=== PATIENT | female | born 1980 | race Two or more races ===

== ENCOUNTER 2024-12-27 21:37 | Inpatient (IN) | payer MEDICAID ==
[~2024-12-27] VITALS: Ht 162.6 cm; Wt 97.9 kg
[2024-12-27 22:19] LABS: Urine Bacteria None Seen /hpf (None Seen)
--- NOTE | 2024-12-27 22:29 | ED.PDOC ---
GI ASSESSMENT HPI Comments 44y F who presents to the ED for chief complaint of abdominal pain. Pt states she has been having epigastric and RUQ abdominal pain for the past 3 days. Pt states the pain is stabbing in nature, constant, with no associated exacerbating or relieving factors. Pt has associated nausea, vomiting but otherwise denies diarrhea, fever, cough, chills, dysuria, hematuria, or hematemesis. Pt states she took ibuprofen earlier this AM but states it did not help. Pt has noted history of gallstones. Pt otherwise denies any other symptoms at this time. Vital signs were stable at arrival. Chief Complaint: Abdominal Pain Time Seen by MD: 22:28 Reviewed Notes: Nurses Notes, Medications, Allergies Allergies: Coded Allergies: NO KNOWN ALLERGIES (Unverified , 12/27/24) Information Source: Patient Mode of Arrival: Ambulatory Brought in by: self Timing: Days Duration: Since onset Prehospital treatment: None Quality: Aching, Cramping Vomitus: Bilious, Food Particles, Soft, Watery Severity: Moderate Recent: None Recent Hx of: None Pain Location: Diffuse, Epigastric Modifying Factors: Food Associated sign and symptoms: Nausea, Vomiting, Abdominal Pain Past Medical History Surgical History: Denies all surgeries 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 SPRAYER 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 History Family History Family History: Reviewed,noncontributory to illness, No family hx of Cancer, No family hx of DM, No family hx of Heart chica, No family hx of HTN, No family hx ofKidney chica, No family hx of Liver chica, No family hx of Lung chica, No family hx of Stroke Social History Smoker: Non-Smoker Alcohol: Denies ETOH Use Drugs: Denies Drug Use Lives In: Home Constitutional: denies: chills, diaphoresis, fatigue, fever, malaise, sweats, weakness, others EENTM: denies: blurred vision, double vision, ear bleeding, ear discharge, ear drainage, ear pain, ear ringing, eye pain, eye redness, hearing loss, mouth pain, mouth swelling, nasal discharge, nose bleeding, nose congestion, nose pain, photophobia, tearing, throat pain, throat swelling, voice changes, others Respiratory: denies: cough, hemoptysis, orthopnea, SOB at rest, shortness of breath, SOB with excertion, stridor, wheezing, others Cardiovascular: denies: chest pain, dizzy spells, diaphoresis, Dyspnea on exertion, edema, irregular heart beat, left arm pain, lightheadedness, palpitations, PND, syncope, others Gastrointestinal: reports: abdominal pain, nausea, vomiting; denies: abdomen distended, blood streaked bowels, constipated, diarrhea, dysphagia, difficulty swallowing, hematemesis, melena, poor appetite, poor fluid intake, rectal bleeding, rectal pain, others Genitourinary: denies: abnormal vagina bleeding, burning, dyspareunia, dysuria, flank pain, frequency, hematuria, incontinence, pain, , vagina discharge, urgency, others Neurological: denies: dizziness, fainting, headache, left sided numbness, left sided weakness, numbness, paresthesia, pre-existing deficit, right sided numbness, right sided weakness, seizure, speech problems, tingling, tremors, w eakness, others Musculoskeletal: denies: back pain, gout, joint pain, joint swelling, muscle pain, muscle stiffness, neck pain, others Integumetry: denies: bruises, change in color, change in hair/nails, dryness, laceration, lesions, lumps, rash, wounds, others Allergic/Immunocompromised: denies: Difficulty Healing, Frequent Infections, Hives, Itching, others Hematologic/Lymphatic: denies: anemia, blood clots, easy bleeding, easy bruising, swollen glands, others Endocrine: denies: excessive hunger, excessive sweating, excessive thirst, excessive urination, flushing, intolerance to cold, intolerance to heat, unexplained weight gain, unexplained weight loss, others Psychiatric: denies: anxiety, bipolar disorder, depression, hopeless, panic disorder, schizophrenia, sleepless, suicidal, others All Other Systems: Reviewed and Negative Physical Exam General Appearance: Moderate Distress (Patient appears to be in moderate distress at time of evaluation due to belly pain.), Obese HEENT: Pharynx Normal, Scleral Icterus (L), Scleral Icterus (R), TMs Normal Neck: Full Range of Motion, Non-Tender, Normal, Normal Inspection Respiratory: Chest Non-Tender, Lungs Clear, No Accessory Muscle Use, No Respiratory Distress, Normal Breath Sounds Cardiovascular: No Edema, No JVD, No Murmur, No Gallop, Normal Peripheral Pulses, Regular Rate/Rhythm Breast Exam: Deferred Gastrointestinal: Other ( Diffuse epigastric tenderness to palpation bilaterally. Abdomen was mildly rigid. No pulsatile masses. Difficult to assess due to body habitus.) Genitalia: Deferred Pelvic: Deferred Rectal: Deferred Extremities: No calf tenderness, Normal capillary refill, Non-tender, No pedal edema Neurologic: Alert, No Motor Deficits, No Sensory Deficits Cerebellar Function: Normal Reflexes: Normal Skin: Dry, Normal Color, Warm Lymphatic: No Adenopathy Was a procedure done? Was a procedure done?: No GI differential Dx Differential Diagnosis: Cholecystitis, Gastritis/PUD, Gastroenteritis, Hepatitis, Pancreatitis, UTI, Dehydration Other Differential Diagnosis gallstones, biliary colic X-Ray, Labs, Meds, VS Vital Signs Date Time Temp Pulse Resp B/P (MAP) Pulse Ox O2 Delivery O2 Flow Rate FiO2 12/27/24 23:01 98.1 85 19 114/63 (80) 96 98.1 12/27/24 23:01 85 19 96 Room Air 12/27/24 21:59 98.7 88 16 122/74 (90) 97 98.7 Lab Test 12/27/24 22:08 12/27/24 21:54 Range/Units White Blood Count 9.5 4.4-10.8 10^3/uL Red Blood Count 4.62 4.0-5.20 10^6/uL Hemoglobin 13.2 12.2-16.2 g/dL Hematocrit 39.9 36.0-46.0 % Mean Corpuscular Volume 86.4 80.0-100.0 fL Mean Corpuscular Hemoglobin 28.5 28.0-32.0 pg Mean Corpuscular Hemoglobin Concent 33.0 32.0-36.0 g/dL Red Cell Distribution Width 15.9 H 11.8-14.3 % Platelet Count 281 140-450 10^3/uL Mean Platelet Volume 8.5 6.9-10.8 fL Neutrophils (%) (Auto) 82.3 H 37.0-80.0 % Lymphocytes (%) (Auto) 10.9 10.0-50.0 % Monocytes (%) (Auto) 5.9 0.0-12.0 % Eosinophils (%) (Auto) 0.5 0.0-7.0 % Basophils (%) (Auto) 0.4 0.0-2.0 % Neutrophils # (Auto) 7.9 1.6-8.6 10 ^3/uL Lymphocytes # (Auto) 1.0 0.4-5.4 10 ^3/uL Monocytes # (Auto) 0.6 0-1.3 10 ^3/uL Eosinophils # (Auto) 0 0-0.8 10 ^3/uL Basophils # (Auto) 0 0-0.2 10 ^3/uL Nucleated Red Blood Cells 0.0 % Sodium Level 135 L 136-145 mmol/L Potassium Level 3.7 3.5-5.1 mmol/L Chloride Level 105 98-107 mmol/L Carbon Dioxide Level 22 20-31 mmol/L Anion Gap 8 5-15 Blood Urea Nitrogen 6 L 9-23 mg/dL Creatinine 0.71 0.550-1.02 mg/dL Glomerular Filtration Rate Calc 108 >90 mL/min BUN/Creatinine Ratio 8.5 L 10.0-20.0 Serum Glucose 307 H 74-106 mg/dL Calcium Level 9.1 8.7-10.4 mg/dL Total Bilirubin 4.7 H 0.2-1.0 mg/dL Aspartate Amino Transferase (AST) 448 H 13-40 U/L Alanine Aminotransferase (ALT) 481 H 7-40 U/L Alkaline Phosphatase 234 H 46-116 U/L Total Protein 7.1 5.7-8.2 g/dL Albumin 4.4 3.2-4.8 g/dL Lipase > 3500 H 12-53 U/L Urine Color Dark-yellow Yellow Urine Clarity Clear Clear Urine pH 5.5 5.0-9.0 Urine Specific [place] 1.038 H 1.001-1.035 Urine Protein Negative Negative Urine Ketones 1+ H Negative Urine Blood Negative Negative /uL Urine Nitrite Negative Negative Urine Bilirubin 2+ H Negative Urine Urobilinogen Normal Negative mg/dL Urine Leukocyte Esterase Negative Negative /uL Urine RBC 1 0 - 4 /hpf Urine Microscopic WBC 1 0-5 /HPF Urine Squamous Epithelial Cells Few <5 /hpf Urine Bacteria None seen None Seen /hpf Urine Glucose 4+ H Normal mg/dL Urine Test Negative Negative Current Medications Medications (Trade) Dose Ordered Sig/[place]ville Route Start Time Stop Time Status Last Admin Acetaminophen/ Hydrocodone Bitart ([place] 10/325MG Tab) 1 tab ONCE ONCE PO 12/27/24 22:00 12/27/24 22:01 DC 12/27/24 23:02 Ondansetron HCl (Zofran Po) 4 mg ONCE ONCE PO 12/27/24 22:00 12/27/24 22:01 DC 12/27/24 23:02 X-Ray, Labs, Meds, VS Comment All studies performed the ED were evaluated by me personally. Laboratories revealed a significant lipase burden of over 3500, significant transaminitis and hyperglycemia. Imaging studies confirmed a significant pancreatitis as well as hepatomegaly and hepatic steatosis. Patient will be admitted for management of her liver and pancreatic concerns. Time of 1ST Reevaluation: 00:06 Reevaluation 1ST: Improved Consultation: PCP Patient Education/Counseling: Diagnosis, Treatment Family Education/Counseling: Diagnosis, Treatment, No Family Present Departure 1 Departure Time of Disposition: 00:07 Impression: Primary Impression: Acute pancreatitis Additional Impressions: Hepatomegaly Hepatic steatosis Disposition: ADMITTED INPATIENT Condition: Fair Discharged With: Self Critical Care Note Critical Care Time?: No Stability Stability form required: No Heart Score Heart Score: Heart Score Response (Comments) Value History N/A 0 EKG N/A 0 Age N/A 0 Risk Factors N/A 0 Troponin N/A 0 Total 0 I personally scribed for LINA NGUYEN PAC ([email or web address]) on 12/27/24 at 22:29. Electronically submitted by Janay Tadeo ([email or web address]). LINA NGUYEN PAC Dec 27, 2024 22:29
[2024-12-27 22:33] LABS: Basophils # (auto) 0 10 ^3/uL (0-0.2); Basophils % (auto) 0.4 % (0.0-2.0); Eosinophils # (auto) 0 10 ^3/uL (0-0.8); Eosinophils % (auto) 0.5 % (0.0-7.0); Hematocrit 39.9 % (36.0-46.0); Hemoglobin 13.2 g/dL (12.2-16.2); Lymphocytes % (auto) 10.9 % (10.0-50.0); Mean Corpuscular Hemoglobin 28.5 pg (28.0-32.0); Mean Corpuscular Volume 86.4 fL (80.0-100.0); Monocytes # (auto) 0.6 10 ^3/uL (0-1.3); Monocytes % (auto) 5.9 % (0.0-12.0); Neutrophils # (auto) 7.9 10 ^3/uL (1.6-8.6); Neutrophils % (auto) 82.3 % (37.0-80.0); Platelet Count (auto) 281 10^3/uL (140-450); Red Blood Cells 4.62 10^6/uL (4.0-5.20); Red Cell Distribution Width 15.9 % (11.8-14.3); White Blood Cell 9.5 10^3/uL (4.4-10.8)
[2024-12-27 22:34] LABS: Albumin 4.4 g/dL (3.2-4.8); Anion Gap 8 (5-15); BUN/Creatinine Ratio 8.5 (10.0-20.0); Calcium 9.1 mg/dL (8.7-10.4); Carbon Dioxide 22 mmol/L (20-31); Chloride 105 mmol/L (98-107); Potassium 3.7 mmol/L (3.5-5.1); Total Protein 7.1 g/dL (5.7-8.2)
[2024-12-27 22:37] LABS: Urine Blood Negative /uL (Negative); Urine Clarity Clear (Clear); Urine Color Dark-Yellow (Yellow); Urine Protein, UAD Negative (Negative); Urine Specific Gravity 1.038 (1.001-1.035); Urine Squamous Epithelial Cell FEW /hpf (<5); Urine Urobilinogen Normal (Negative); Urine WBC 1 /HPF (0-5); Urine pH 5.5 (5.0-9.0)
[2024-12-27] MEDS: ONDANSETRON ODT 4 MG TAB PO ONE (23:02)
[2024-12-27] MEDS: HYDROcodone-ACET 10/325MG TAB PO ONE (23:02)
[2024-12-27 23:18] LABS: Alanine Aminotransferase 481 U/L (7-40); Alkaline Phosphatase 234 U/L (46-116); Aspartate Aminotransferase 448 U/L (13-40); Bilirubin, Total 4.7 mg/dL (0.2-1.0); Blood Urea Nitrogen 6 mg/dL (9-23); Glucose 307 mg/dL (74-106); Lipase > 3500 U/L (12-53); Sodium 135 mmol/L (136-145)
[2024-12-27] MEDS: IOHEXOL 300 MG/ML 100ML BOTTLE IJ ONE (23:28)
--- NOTE | 2024-12-27 23:57 | DVH ---
Exam: CT CT AB PEL WITH IV CON ONLY History: Epigastric and right upper quadrant pain COMPARISON: None Technique: Multidetector spiral CT of the abdomen and pelvis was performed from lung bases to pubic s ymphysis. Intravenous contrast was administered during this examination. Portal venous imaging was o btained. Axial, coronal and sagittal multiplanar reformats were performed by the technologist on a [employer] workstation. Radiation Dose : 1. Abdomen/Pelvis: CTDIvol 20.83 mGy, DLP 1284.92 mGy*cm. CONTRAST: Type of contrast: Omnipaque 300 Contrast injected: 100 ml Contrast ingested: None Findings: Lung Bases: No acute or significant lung base finding. Mild left basilar atelectasis noted. Normal he art size. No pleural or pericardial effusion. Liver: The liver is enlarged, measuring up to 21.4 cm in craniocaudal dimension. Diffuse hepatic stea tosis. No focal lesions. Normal hepatic vascular enhancement. Spleen: Unremarkable Pancreas: Moderate diffuse peripancreatic inflammatory changes are noted without discrete fluid colle ctions or definite evidence of pancreatic parenchymal necrosis, CT severity index 2. There is increas ed prominence of the common bile duct and the gallbladder is moderately distended. No evidence of int rahepatic biliary ductal dilatation. Adrenal Glands: Unremarkable Kidneys: No hydronephrosis. Bladder: Unremarkable Bowel: The stomach is grossly normal in appearance. Small bowel and colon are normal in caliber and d istribution. The appendix is normal. Ascites: Absent Lymphadenopathy: No mesenteric, retroperitoneal or periportal lymphadenopathy. Abdominal Wall and Mesentery: Unremarkable. Vasculature: The visualized abdominal aorta is normal in size and caliber. Abdominal and pelvic vess els demonstrate normal enhancement. Pelvic Organs: Unremarkable Musculoskeletal: No aggressive focal bony lesions, acute fractures or dislocation. IMPRESSION: 1. Acute pancreatitis, CTSI 2. 2. Hepatomegaly and hepatic steatosis. Radiation optimization: All CT scans at this facility use at least one of these dose optimization jared hniques: automated exposure control mA and/or kV adjustment per patient size (includes targeted exam s where dose is matched to clinical indication) or iterative reconstruction.
[2024-12-28] VITALS (8 sets, daily range): BP systolic 101–115; BP diastolic 52–73; PULSE 74–94; RESP 16–18; TEMP 97.3–99.1; O2SAT 92–98
[2024-12-28] MEDS: HYDROmorphone HCL 2 MG/ML VL/or syr IV ONE (00:12)
[2024-12-28] MEDS: METOCLOPRAMIDE HCL 5MG/ml INJ 2ml VIAL IV ONE (00:13)
[2024-12-28] MEDS ORDERED: ONDANSETRON HCL 4 MG/2 ML VIAL IV PRN (01:00)
[2024-12-28] MEDS: SODIUM CHLORIDE 0.9% 1,000 ML IV ONE (01:46)
--- NOTE | 2024-12-28 03:19 | DVHHP2 ---
History of Present Illness Reason for Visit: Abdominal pain History of Present Illness 44-year-old female presents for evaluation of abdominal pain. Patient presents with a three day history of sharp epigastric abdominal pain that radiates to her right upper quadrant. She reports the pain as sharp/stabbing. Patient associates having nausea and vomiting. Denies fever or diarrhea. No other acute complaints reported. Past Medical History Denies Past Surgical History Denies Family History Noncontributory Smoke: No ALCOHOL: none Drugs: None Lives: with Family Review of Systems Review of Systems Review of systems are currently negative otherwise addressed in HPI. Allergies: Coded Allergies: NO KNOWN ALLERGIES (Unverified , 12/27/24) Medications Current Medications Medications Dose Ordered Sig/[place]ville Route Start Time Stop Time Status Last Admin Dose Admin Pantoprazole Sodium 40 mg DAILY IV 12/28/24 10:00 Ondansetron HCl 4 mg Q4HP PRN IV 12/28/24 01:00 Morphine Sulfate 2 mg Q4HPRN PRN IV 12/28/24 01:00 Exam Vital Signs Vital Signs Date Time Temp Pulse Resp B/P (MAP) Pulse Ox O2 Delivery O2 Flow Rate FiO2 12/28/24 01:15 98.2 80 17 115/52 (73) 94 98.2 12/28/24 01:09 Room Air* 0 21 21 Exam Gen: 44-year-old female in mild distress Skin: Warm, dry, normal color and texture, no rash. HEENT: Normocephalic atraumatic, mucous membranes moist and pink. Neck: Cervical and supraclavicular nodes normal without enlargement, trachea is midline, thyroid gland is normal without masses. Pulmonary: Clear to auscultation and percussion bilaterally. Cardiac: Regular rate and rhythm. No murmur Abdomen: Soft, epigastric tenderness, nondistended, bowel sounds present all 4 quadrants, no guarding, no rigidity, no organomegaly. Extremities: No cyanosis, clubbing, no edema Neuro: Cranial nerves II through XII grossly intact, normal affect and speech, no focal motor deficits. Labs/Xrays ORDERING PHYSICIAN: LINA NGUYEN PAC PROCEDURE(s): ABPLIV - CT AB PEL WITH IV CON ONLY REASON: Epigastric and right upper quadrant pain ORDER NUMBER(s): [id number], ACCESSION NUMBER(s): [id number] Exam: CT CT AB PEL WITH IV CON ONLY History: Epigastric and right upper quadrant pain COMPARISON: None Technique: Multidetector spiral CT of the abdomen and pelvis was performed from lung bases to pubic symphysis. Intravenous contrast was administered during this examination. Portal venous imaging was obtained. Axial, coronal and sagittal multiplanar reformats were performed by the technologist on a separate workstation. Radiation Dose : 1. Abdomen/Pelvis: CTDIvol 20.83 mGy, DLP 1284.92 mGy*cm. CONTRAST: Type of contrast: Omnipaque 300 Contrast injected: 100 ml Contrast ingested: None Findings: Lung Bases: No acute or significant lung base finding. Mild left basilar at electasis noted. Normal heart size. No pleural or pericardial effusion. Liver: The liver is enlarged, measuring up to 21.4 cm in craniocaudal dimension. Diffuse hepatic steatosis. No focal lesions. Normal hepatic vascular enhancement. Spleen: Unremarkable Pancreas: Moderate diffuse peripancreatic inflammatory changes are noted without discrete fluid collections or definite evidence of pancreatic parenchymal necrosis, CT severity index 2. There is increased prominence of the common bile duct and the gallbladder is moderately distended. No evidence of intrahepatic biliary ductal dilatation. Adrenal Glands: Unremarkable Kidneys: No hydronephrosis. Bladder: Unremarkable Bowel: The stomach is grossly normal in appearance. Small bowel and colon are normal in caliber and distribution. The appendix is normal. Ascites: Absent Lymphadenopathy: No mesenteric, retroperitoneal or periportal lymphadenopathy. Abdominal Wall and Mesentery: Unremarkable. Vasculature: The visualized abdominal aorta is normal in size and caliber. Abdominal and pelvic vessels demonstrate normal enhancement. Pelvic Organs: Unremarkable Musculoskeletal: No aggressive focal bony lesions, acute fractures or dislocation. IMPRESSION: 1. Acute pancreatitis, CTSI 2. 2. Hepatomegaly and hepatic steatosis. Radiation optimization: All CT scans at this facility use at least one of these dose optimization techniques: automated exposure control mA and/or kV adjustment per patient size (includes targeted exams where dose is matched to clinical indication) or iterative reconstruction. ATED BY: PORFIRIO PAIZ MD Labs Test 12/27/24 22:08 12/27/24 21:54 Range/Units White Blood Count 9.5 4.4-10.8 10^3/uL Red Blood Count 4.62 4.0-5.20 10^6/uL Hemoglobin 13.2 12.2-16.2 g/dL Hematocrit 39.9 36.0-46.0 % Mean Corpuscular Volume 86.4 80.0-100.0 fL Mean Corpuscular Hemoglobin 28.5 28.0-32.0 pg Mean Corpuscular Hemoglobin Concent 33.0 32.0-36.0 g/dL Red Cell Distribution Width 15.9 H 11.8-14.3 % Platelet Count 281 140-450 10^3/uL Mean Platelet Volume 8.5 6.9-10.8 fL Neutrophils (%) (Auto) 82.3 H 37.0-80.0 % Lymphocytes (%) (Auto) 10.9 10.0-50.0 % Monocytes (%) (Auto) 5.9 0.0-12.0 % Eosinophils (%) (Auto) 0.5 0.0-7.0 % Basophils (%) (Auto) 0.4 0.0-2.0 % Neutrophils # (Auto) 7.9 1.6-8.6 10 ^3/uL Lymphocytes # (Auto) 1.0 0.4-5.4 10 ^3/uL Monocytes # (Auto) 0.6 0-1.3 10 ^3/uL Eosinophils # (Auto) 0 0-0.8 10 ^3/uL Basophils # (Auto) 0 0-0.2 10 ^3/uL Nucleated Red Blood Cells 0.0 % Sodium Level 135 L 136-145 mmol/L Potassium Level 3.7 3.5-5.1 mmol/L Chloride Level 105 98-107 mmol/L Carbon Dioxide Level 22 20-31 mmol/L Anion Gap 8 5-15 Blood Urea Nitrogen 6 L 9-23 mg/dL Creatinine 0.71 0.550-1.02 mg/dL Glomerular Filtration Rate Calc 108 >90 mL/min BUN/Creatinine Ratio 8.5 L 10.0-20.0 Serum Glucose 307 H 74-106 mg/dL Calcium Level 9.1 8.7-10.4 mg/dL Total Bilirubin 4.7 H 0.2-1.0 mg/dL Aspartate Amino Transferase (AST) 448 H 13-40 U/L Alanine Aminotransferase (ALT) 481 H 7-40 U/L Alkaline Phosphatase 234 H 46-116 U/L Total Protein 7.1 5.7-8.2 g/dL Albumin 4.4 3.2-4.8 g/dL Lipase > 3500 H 12-53 U/L Urine Color Dark-yellow Yellow Urine Clarity Clear Clear Urine pH 5.5 5.0-9.0 Urine Specific [place] 1.038 H 1.001-1.035 Urine Protein Negative Negative Urine Ketones 1+ H Negative Urine Blood Negative Negative /uL Urine Nitrite Negative Negative Urine Bilirubin 2+ H Negative Urine Urobilinogen Normal Negative mg/dL Urine Leukocyte Esterase Negative Negative /uL Urine RBC 1 0 - 4 /hpf Urine Microscopic WBC 1 0-5 /HPF Urine Squamous Epithelial Cells Few <5 /hpf Urine Bacteria None seen None Seen /hpf Urine Glucose 4+ H Normal mg/dL Urine Test Negative Negative Assessment/Plan Assessment/Plan Assessment Acute abdominal pain Acute pancreatitis Transaminitis Plan Admit the patient to [facility] to the hospitalist GI consult MRCP pending Maintenance IV fluids Pain management Continue treatment per orders. Plan discussed with: Patient My Orders Orders - TRAM MANDEL Procedure Category Date Status Time Pantoprazole PHA 12/28/24 In Process (Protonix) 10:00 * [facility] [employer] CONS 12/28/24 Transmitted 00:57 Mrcp Mri MRI 12/28/24 Logged 00:57 Sodium Chloride 0.9% PHA 12/28/24 In Process 01:00 Admit ADMIT 12/28/24 Transmitted 00:57 Ondansetron Hcl PHA 12/28/24 In Process (Zofran) 01:00 Complete Blood Count LAB 12/28/24 Logged 04:00 Comprehensive LAB 12/28/24 Logged Metabolic Panel 04:00 Npo (Nothing By DIET 12/28/24 Transmitted Mouth) Diet Breakfast Condition: Stable RAMIRO 12/28/24 In Process 00:57 Bedrest With Bathroom RAMIRO 12/28/24 In Process Privileg 00:57 Morphine Sulfate PHA 12/28/24 In Process Injection 01:00 Acute Hepatitis Panel LAB 12/28/24 Logged 00:57 Date of Service: Dec 27, 2024 Billing Provider: TRAM MANDEL Common Visit Codes: [id number] INP/OBS CARE (HIGH) TRAM MANDEL Dec 28, 2024 03:19
[2024-12-28] MEDS: MORPHINE SULFATE INJ 2 MG/ml SYRG IV PRN (06:09)
[2024-12-28] MEDS: PANTOPRAZOLE 40 MG/10 ML VIAL INJ IV SCH (08:45)
--- NOTE | 2024-12-28 11:01 | DVHPN2 ---
Reviewed: Care Plan, H&P, Labs, Medications, Previous Orders, Radiology Changes from previous H/P or p: No Changes Objective Vitals Vital Signs Date Time Temp Pulse Resp B/P (MAP) Pulse Ox O2 Delivery O2 Flow Rate FiO2 12/28/24 08:16 98.1 76 18 102/59 (73) 96 98.1 12/28/24 07:30 Room Air* 0 21 Intake/Output Intake and Output 12/28/24 07:00 Intake Total 0 ml Balance 0 ml Intake Oral 0 ml Other 0 ml Medications Current Medications Medications Dose Ordered Sig/[place] Route Start Time Stop Time Status Last Admin Dose Admin Pantoprazole Sodium 40 mg DAILY IV 12/28/24 10:00 12/28/24 08:45 40 MG Ondansetron HCl 4 mg Q4HP PRN IV 12/28/24 01:00 Morphine Sulfate 2 mg Q4HPRN PRN IV 12/28/24 01:00 12/28/24 06:09 2 MG Laboratory Results Laboratory Tests 12/27/24 22:08 Chemistry Test 12/27/24 22:08 Albumin 4.4 g/dL (3.2-4.8) Calcium Level 9.1 mg/dL (8.7-10.4) Total Protein 7.1 g/dL (5.7-8.2) Lipid panel Test 12/27/24 22:08 Lipase > 3500 U/L (12-53) H LFT Test 12/27/24 22:08 Alanine Aminotransferase (ALT) 481 U/L (7-40) H Alkaline Phosphatase 234 U/L (46-116) H Aspartate Amino Transferase (AST) 448 U/L (13-40) H Total Bilirubin 4.7 mg/dL (0.2-1.0) H Urinalysis Test 12/27/24 21:54 Urine Color Dark-yellow (Yellow) Urine Clarity Clear (Clear) Urine pH 5.5 (5.0-9.0) Urine Specific [place] 1.038 (1.001-1.035) Urine Protein Negative (Negative) Urine Ketones 1+ (Negative) H Urine Blood Negative /uL (Negative) Urine Nitrite Negative (Negative) Urine Bilirubin 2+ (Negative) H Urine Urobilinogen Normal mg/dL (Negative) Urine Leukocyte Esterase Negative /uL (Negative) Urine RBC 1 /hpf (0 - 4) Urine Microscopic WBC 1 /HPF (0-5) Urine Squamous Epithelial Cells Few /hpf (<5) Urine Bacteria None seen /hpf (None Seen) Urine Glucose 4+ mg/dL (Normal) H Urine Test Negative (Negative) Labs and/or images reviewed: Labs reviewed by me, Image(s) reviewed by me Assessment/Plan Assessment/Plan Pain Acute pancreatitis with a lipase of 3500, IV fluids pain medications pantoprazole consult for GI Dr. Violette Ruiz Elevated liver enzymes with jaundice: Gallbladder ultrasound MRCP comprehensive hepatitis panel, urine drug screen, blood alcohol level Hyperbilirubinemia bilirubin 4.5 History of gallstones MRCP result pending Condition guarded Plan discussed with: Patient My Orders Orders - CHERY AVENDANO MD Procedure Category Date Status Time Drug Screen LAB 12/28/24 Transmitted 10:49 Comprehensive LAB 12/28/24 Transmitted Hepatitis Panel 10:49 * [facility] Associate [employer] CONS 12/28/24 Transmitted 10:49 Gallbladder US 12/28/24 Verified 10:51 Date of Service: Dec 28, 2024 Billing Provider: CHERY AVENDANO MD Common Visit Codes: [id number] INP/OBS CARE(HIGH) CHERY AVENDANO MD Dec 28, 2024 11:01
[2024-12-28] MEDS: D5W/SOD CHLO 0.9% 1,000 ML IV SCH (11:23)
[2024-12-28 11:57] LABS: Basophils # (auto) 0 10 ^3/uL (0-0.2); Basophils % (auto) 0.2 % (0.0-2.0); Eosinophils # (auto) 0.1 10 ^3/uL (0-0.8); Eosinophils % (auto) 0.9 % (0.0-7.0); Hematocrit 36.5 % (36.0-46.0); Hemoglobin 12.3 g/dL (12.2-16.2); Lymphocytes # (auto) 1.2 10 ^3/uL (0.4-5.4); Lymphocytes % (auto) 14.5 % (10.0-50.0); Mean Corpuscular Hemoglobin 28.9 pg (28.0-32.0); Mean Corpuscular Hgb Conc. 33.8 g/dL (32.0-36.0); Mean Corpuscular Volume 85.6 fL (80.0-100.0); Monocytes # (auto) 0.6 10 ^3/uL (0-1.3); Monocytes % (auto) 7.4 % (0.0-12.0); Neutrophils # (auto) 6.6 10 ^3/uL (1.6-8.6); Platelet Count (auto) 241 10^3/uL (140-450); Red Blood Cells 4.26 10^6/uL (4.0-5.20); Red Cell Distribution Width 15.8 % (11.8-14.3); White Blood Cell 8.6 10^3/uL (4.4-10.8)
[2024-12-28 12:14] LABS: Albumin 4.2 g/dL (3.2-4.8); Anion Gap 9 (5-15); BUN/Creatinine Ratio 9.7 (10.0-20.0); Calcium 9.1 mg/dL (8.7-10.4); Carbon Dioxide 25 mmol/L (20-31); Chloride 104 mmol/L (98-107); Sodium 138 mmol/L (136-145); Total Protein 6.8 g/dL (5.7-8.2)
[2024-12-28 12:15] LABS: Alanine Aminotransferase 391 U/L (7-40); Alkaline Phosphatase 222 U/L (46-116); Aspartate Aminotransferase 229 U/L (13-40); Blood Urea Nitrogen 6 mg/dL (9-23); Glucose 182 mg/dL (74-106); Potassium 3.4 mmol/L (3.5-5.1)
--- NOTE | 2024-12-28 12:51 | DVH ---
[id number] MRI MRCP MRI Attending Name: LINA NGUYEN COMPARISON: CT scan of the abdomen dated 12/27/2024; ultrasound of the right upper quadrant dated . INDICATION: r/o biliary obstruction TECHNIQUE: MRCP was performed without the use of intravenous contrast using a MRI imaging system. Three-dimensional MRCP was performed using maximum intensity projection reconstruction on an [facility] [employer] workstation under concurrent supervision. FINDINGS: Hepatobiliary: Multiple gallstones are visualized in the gallbladder lumen. No intra or extrahepatic biliary dilatation. There may be tiny calculi in the common bile duct (images 20 2-24, series 4, alt julio c there is extensive patient motion limiting evaluation at those levels. No abnormal prominence o f the main pancreatic duct. The liver measures 21 cm longitudinal. There is peripancreatic fluid. Miscellaneous: The kidneys, spleen, and adrenal glands are unremarkable. No abdominal aortic aneurys m. IMPRESSION: 1. Cholelithiasis and possible choledocholithiasis, without intra or extrahepatic biliary dilatation. 2. Peripancreatic fluid consistent with acute pancreatitis. 3. Hepatomegaly.
[2024-12-28 13:01] LABS: Amphetamine Screen, Urine Neg (NEGATIVE); Barbiturate Scree,Urine Neg (NEGATIVE); Benzodiazephine Screen, Urine Neg (NEGATIVE); Cannabinoid Screen, Urine Neg (NEGATIVE); Cocaine Screen, Urine Neg (NEGATIVE); Opiate Scree,Urine Neg (NEGATIVE); Phencyclidine Screen, Urine Neg (NEGATIVE)
--- NOTE | 2024-12-28 13:37 | DVH ---
INDICATION: Acute pancreatitis TECHNIQUE: Multiple real-time sonographic images of the abdomen were obtained. COMPARISON: None FINDINGS: The liver is homogenous in echogenicity. The liver measures 20.2 cm. No intrahepatic bilia ry ductal dilatation is noted. The gallbladder wall measures 0.23 cm and is unremarkable. Mobile gallstones in the gallbladder. T he common duct measures 0.46 cm and is unremarkable. No pericholecystic fluid is noted. Negative ult rasound Chen's sign The right kidney measures 11.5 cm. No hydronephrosis. The pancreas is normal however the tail of the pancreas is obscured. IMPRESSION: 1. Cholelithiasis with no dilated duct or gallbladder wall thickening. Negative ultrasound Chen's s ign is elicited. 2. Hepatomegaly with the liver measuring 20.2 cm. 3. Right kidney measures 11.5 cm long. 4. Pancreas appears normal but the tail is obscured by bowel gas. HS:Y
--- NOTE | 2024-12-28 21:48 | DVHINCON2 ---
Date of service: Dec 28, 2024 Referring Physician Parvez Contreras Reason for Consultation Suspected gallstone pancreatitis History of Present Illness 44-year-old female presents for evaluation of abdominal pain. Patient presents with a three day history of sharp epigastric abdominal pain that radiates to her right upper quadrant. She reports the pain as sharp/stabbing. Patient associates having nausea and vomiting. Denies fever or diarrhea. No other acute complaints reported. Patient was diagnosed with the acute pancreatitis. She denies any drinking alcohol. Ultrasound shows gallstones without any significant biliary ductal dilation Past Medical History Pancreatitis about seven years ago Family History: Patient reports no known family medical history. Allergies: Coded Allergies: NO KNOWN ALLERGIES (Unverified , 12/27/24) Current Medications Current Medications Medications (Trade) Dose Ordered Sig/[place]ville Route PRN Reason Start Time Stop Time Status Last Admin Pantoprazole Sodium (Protonix) 40 mg DAILY IV 12/28/24 10:00 12/28/24 08:45 Ondansetron HCl (Zofran) 4 mg Q4HP PRN IV NAUSEA / VOMITING 12/28/24 01:00 Morphine Sulfate 2 mg Q4HPRN PRN IV SEVERE PAIN (7-10 PAIN SCALE) 12/28/24 01:00 12/28/24 20:17 Dextrose/Sodium Chloride 1,000 ml @ 150 mls/hr Q6H40M IV 12/28/24 11:00 12/28/24 18:53 Vital Signs Vital Signs Date Time Temp Pulse Resp B/P (MAP) Pulse Ox O2 Delivery O2 Flow Rate FiO2 12/28/24 20:17 95 18 109/63 12/28/24 20:00 Room Air* 0 21 12/28/24 15:30 98.3 92 98.3 Physical Exam Gen: 44-year-old female in no distress Skin: Warm, dry, normal color and texture, no rash. HEENT: Normocephalic atraumatic, mucous membranes moist and pink. Neck: Cervical and supraclavicular nodes normal without enlargement, trachea is midline, thyroid gland is normal without masses. Pulmonary: Clear to auscultation and percussion bilaterally. Cardiac: Regular rate and rhythm. No murmur Abdomen: Soft, epigastric tenderness, nondistended, bowel sounds present all 4 quadrants, no guarding, no rigidity, no organomegaly. Extremities: No cyanosis, clubbing, no edema; Neuro nonfocal Labs/Diagnostic Data Labs Test 12/28/24 11:13 12/27/24 22:08 12/27/24 21:54 Range/Units White Blood Count 8.6 4.4-10.8 10^3/uL Red Blood Count 4.26 4.0-5.20 10^6/uL Hemoglobin 12.3 12.2-16.2 g/dL Hematocrit 36.5 36.0-46.0 % Mean Corpuscular Volume 85.6 80.0-100.0 fL Mean Corpuscular Hemoglobin 28.9 28.0-32.0 pg Mean Corpuscular Hemoglobin Concent 33.8 32.0-36.0 g/dL Red Cell Distribution Width 15.8 H 11.8-14.3 % Platelet Count 241 140-450 10^3/uL Mean Platelet Volume 8.4 6.9-10.8 fL Neutrophils (%) (Auto) 77.0 37.0-80.0 % Lymphocytes (%) (Auto) 14.5 10.0-50.0 % Monocytes (%) (Auto) 7.4 0.0-12.0 % Eosinophils (%) (Auto) 0.9 0.0-7.0 % Basophils (%) (Auto) 0.2 0.0-2.0 % Neutrophils # (Auto) 6.6 1.6-8.6 10 ^3/uL Lymphocytes # (Auto) 1.2 0.4-5.4 10 ^3/uL Monocytes # (Auto) 0.6 0-1.3 10 ^3/uL Eosinophils # (Auto) 0.1 0-0.8 10 ^3/uL Basophils # (Auto) 0 0-0.2 10 ^3/uL Nucleated Red Blood Cells 0.0 % Sodium Level 138 136-145 mmol/L Potassium Level 3.4 L 3.5-5.1 mmol/L Chloride Level 104 98-107 mmol/L Carbon Dioxide Level 25 20-31 mmol/L Anion Gap 9 5-15 Blood Urea Nitrogen 6 L 9-23 mg/dL Creatinine 0.62 0.550-1.02 mg/dL Glomerular Filtration Rate Calc 113 >90 mL/min BUN/Creatinine Ratio 9.7 L 10.0-20.0 Serum Glucose 182 H 74-106 mg/dL Calcium Level 9.1 8.7-10.4 mg/dL Total Bilirubin 2.0 H 0.2-1.0 mg/dL Aspartate Amino Transferase (AST) 229 H 13-40 U/L Alanine Aminotransferase (ALT) 391 H 7-40 U/L Alkaline Phosphatase 222 H 46-116 U/L Total Protein 6.8 5.7-8.2 g/dL Albumin 4.2 3.2-4.8 g/dL Lipase > 3500 H 12-53 U/L Urine Color Dark-yellow Yellow Urine Clarity Clear Clear Urine pH 5.5 5.0-9.0 Urine Specific [place] 1.038 H 1.001-1.035 Urine Protein Negative Negative Urine Ketones 1+ H Negative Urine Blood Negative Negative /uL Urine Nitrite Negative Negative Urine Bilirubin 2+ H Negative Urine Urobilinogen Normal Negative mg/dL Urine Leukocyte Esterase Negative Negative /uL Urine RBC 1 0 - 4 /hpf Urine Microscopic WBC 1 0-5 /HPF Urine Squamous Epithelial Cells Few <5 /hpf Urine Bacteria None seen None Seen /hpf Urine Glucose 4+ H Normal mg/dL Urine Test Negative Negative Urine Opiates Screen Neg NEGATIVE Urine Fentanyl Screen Pos NEGATIVE Urine Barbiturates Screen Neg NEGATIVE Urine Phencyclidine Screen Neg NEGATIVE Urine Amphetamines Screen Neg NEGATIVE Urine Benzodiazepines Screen Neg NEGATIVE Urine Cocaine Screen Neg NEGATIVE Urine Cannabinoids Screen Neg NEGATIVE CT SCAN ABD PELVIS Pancreas: Moderate diffuse peripancreatic inflammatory changes are noted without discrete fluid collections or definite evidence of pancreatic parenchymal necrosis, CT severity index 2. There is increased prominence of the common bile duct and the gallbladder is moderately distended. No evidence of intrahepatic biliary ductal dilatation. Hepatic steatosis RUQ USG IMPRESSION: 1. Cholelithiasis with no dilated duct or gallbladder wall thickening. Negative ultrasound Chen's sign is elicited. 2. Hepatomegaly with the liver measuring 20.2 cm. 3. Right kidney measures 11.5 cm long. 4. Pancreas appears normal but the tail is obscured by bowel gas. Problems(with codes): (1) Elevated liver enzymes (2) Gallstone pancreatitis (3) Hepatic steatosis (4) Acute pancreatitis (5) Hepatomegaly Plan/Recommendation Plan Continue NPO except for ice chips IV fluid hydration Monitor labs MRCP Surgical consult for elective cholecystectomy once acute pancreatitis resolves Plan discussed with: Patient, Other (Nurse) HEATHER DOS SANTOS MD Dec 28, 2024 21:48
[2024-12-29] VITALS (7 sets, daily range): BP systolic 104–113; BP diastolic 50–73; PULSE 77–89; RESP 17–20; TEMP 98.1–98.7; O2SAT 94–97
[2024-12-29 06:52] LABS: Basophils # (auto) 0 10 ^3/uL (0-0.2); Basophils % (auto) 0.3 % (0.0-2.0); Eosinophils # (auto) 0.1 10 ^3/uL (0-0.8); Hematocrit 33.5 % (36.0-46.0); Hemoglobin 11.3 g/dL (12.2-16.2); Lymphocytes # (auto) 1.8 10 ^3/uL (0.4-5.4); Lymphocytes % (auto) 25.1 % (10.0-50.0); Mean Corpuscular Hemoglobin 28.8 pg (28.0-32.0); Mean Corpuscular Hgb Conc. 33.7 g/dL (32.0-36.0); Mean Corpuscular Volume 85.6 fL (80.0-100.0); Monocytes # (auto) 0.6 10 ^3/uL (0-1.3); Monocytes % (auto) 8.5 % (0.0-12.0); Neutrophils # (auto) 4.5 10 ^3/uL (1.6-8.6); Neutrophils % (auto) 64.1 % (37.0-80.0); Platelet Count (auto) 218 10^3/uL (140-450); Red Blood Cells 3.92 10^6/uL (4.0-5.20); Red Cell Distribution Width 15.6 % (11.8-14.3)
[2024-12-29 07:05] LABS: Anion Gap 8 (5-15); Carbon Dioxide 23 mmol/L (20-31); Chloride 107 mmol/L (98-107); Sodium 138 mmol/L (136-145)
[2024-12-29 07:06] LABS: Alanine Aminotransferase 247 U/L (7-40); Alkaline Phosphatase 173 U/L (46-116); BUN/Creatinine Ratio 8.6 (10.0-20.0); Blood Urea Nitrogen < 5 mg/dL (9-23); Calcium 8.6 mg/dL (8.7-10.4); Glucose 225 mg/dL (74-106); Lipase 401 U/L (12-53); Potassium 3.3 mmol/L (3.5-5.1)
[2024-12-29 07:07] LABS: Albumin 3.7 g/dL (3.2-4.8); Aspartate Aminotransferase 90 U/L (13-40)
[2024-12-29 10:02] LABS: Hepatitis B Surface Antigen Negative (Negative)
[2024-12-29 10:17] LABS: Hepatitis B Core Total AB Negative (Negative)
[2024-12-29 10:22] LABS: Hepatitis A Ab IgM Negative
[2024-12-29 10:23] LABS: Hepatitis B Core IgM Negative (Negative); Hepatitis C Antibody Negative (Negative)
--- NOTE | 2024-12-29 10:54 | DVH ---
[id number] MRI MRCP MRI Attending Name: TRAM MANDEL COMPARISON: MRI MRCP MRI on DOS: 12/28/24, ultrasound dated 12/28/2024 INDICATION: gallstone pancreatitis elevated liver tests TECHNIQUE: MRCP was performed without the use of intravenous contrast using a MRI imaging system. Three-dimensional MRCP was performed using maximum intensity projection reconstruction on an [facility] ent workstation under concurrent supervision. FINDINGS: Visualized lower thorax: Trace bilateral pleural effusions bilateral lower lung zone pulmonary opacit ies. Liver: Liver is moderately enlarged, 22 cm in craniocaudal. Suggestion of hepatic steatosis. No focal lesion. Gallbladder: Moderately distended gallbladder. Several subcentimeter gallstones are seen in gallbladd er lumen. Severe circumferential gallbladder wall thickening noted in the region of the fundus measur ing up to 9 mm. Moderate pericholecystic edema Biliary system: There is no intrahepatic or extrahepatic bile duct dilatation. No filling defect to s uggest choledocholithiasis. The common bile duct measures 4 mm in caliber. Spleen: Normal in morphology and signal intensity. Pancreas: Peripancreatic edema noted. Pancreatic body and tail are edematous. No pancreatic ductal di latation. No pseudocyst is seen Adrenal glands: Normal in morphology and signal intensity. Kidneys: The kidneys are symmetric in size and appearance. No hydronephrosis. Urinary tract: The included ureters, as visualized, are normal in course and caliber. GI tract: Scattered colonic diverticula. No evidence of small-bowel obstruction in the upper abdomen. Lymph nodes: No enlarged lymph nodes. Peritoneum: No ascites. Musculoskeletal: The bone marrow signal intensity is within normal limits. IMPRESSION: 1. Pancreatitis with no evidence of pseudocyst formation or pancreatic ductal dilatation. 2. Cholelithiasis with numerous subcentimeter calculi in gallbladder lumen severe gallbladder wall th ickening in the region of the fundus that may represent chronic cholecystitis or an infiltrative josie ow lesion. Consider cholecystectomy. 3. No choledocholithiasis.
[2024-12-29 11:35] LABS: Hepatitis A Total Antibody Positive (Negative)
[2024-12-29 11:36] LABS: Hepatitis B Surface Antibody Negative (Negative); Hepatitis B Surface Antigen Negative (Negative); Hepatitis C Antibody Negative (Negative)
--- NOTE | 2024-12-29 12:24 | DVHPN2 ---
Subjective Abdominal pain has improved significantly No nausea no vomiting Liver functions are better Bilirubin is 1.0 Potassium 3.3 Repeat MRCP shows no common bile duct stones Reviewed: Care Plan, H&P, Labs, Medications, Previous Orders, Radiology Changes from previous H/P or p: Changes Objective Vitals Vital Signs Date Time Temp Pulse Resp B/P (MAP) Pulse Ox O2 Delivery O2 Flow Rate FiO2 12/29/24 09:00 98.7 77 18 111/73 (86) 94 98.7 12/28/24 20:00 Room Air* 0 21 Intake/Output Intake and Output 12/29/24 07:00 Intake Total 3150 ml Output Total 200 ml Balance 2950 ml Intake Oral 800 ml IV Total 2350 ml Output Urine Total 200 ml # Voids 1 General Appearance: Alert, Oriented X3, Cooperative, No acute distress Cardiovascular: Regular rate, Normal S1, Normal S2 Abdomen: Normal bowel sounds, Soft, Other (Mild tenderness in the epigastric region with no rebound tenderness) Extremities: No edema Medications Current Medications Medications Dose Ordered Sig/[place] Route Start Time Stop Time Status Last Admin Dose Admin Pantoprazole Sodium 40 mg DAILY IV 12/28/24 10:00 12/29/24 10:10 40 MG Ondansetron HCl 4 mg Q4HP PRN IV 12/28/24 01:00 Morphine Sulfate 2 mg Q4HPRN PRN IV 12/28/24 01:00 12/28/24 20:17 2 MG Dextrose/Sodium Chloride 1,000 ml @ 150 mls/hr Q6H40M IV 12/28/24 11:00 12/29/24 06:30 150 MLS/HR Laboratory Results Laboratory Tests 12/29/24 05:46 Chemistry Test 12/29/24 05:46 Albumin 3.7 g/dL (3.2-4.8) Calcium Level 8.6 mg/dL (8.7-10.4) L Total Protein 6.0 g/dL (5.7-8.2) Lipid panel Test 12/29/24 05:46 Lipase 401 U/L (12-53) H LFT Test 12/29/24 05:46 Alanine Aminotransferase (ALT) 247 U/L (7-40) H Alkaline Phosphatase 173 U/L (46-116) H Aspartate Amino Transferase (AST) 90 U/L (13-40) H Total Bilirubin 1.0 mg/dL (0.2-1.0) Urinalysis Test 12/27/24 21:54 Urine Color Dark-yellow (Yellow) Urine Clarity Clear (Clear) Urine pH 5.5 (5.0-9.0) Urine Specific [place] 1.038 (1.001-1.035) Urine Protein Negative (Negative) Urine Ketones 1+ (Negative) H Urine Blood Negative /uL (Negative) Urine Nitrite Negative (Negative) Urine Bilirubin 2+ (Negative) H Urine Urobilinogen Normal mg/dL (Negative) Urine Leukocyte Esterase Negative /uL (Negative) Urine RBC 1 /hpf (0 - 4) Urine Microscopic WBC 1 /HPF (0-5) Urine Squamous Epithelial Cells Few /hpf (<5) Urine Bacteria None seen /hpf (None Seen) Urine Glucose 4+ mg/dL (Normal) H Urine Test Negative (Negative) Assessment/Plan Assessment/Plan Abdominal pain due to gallstone pancreatitis Acute pancreatitis improving Biliary obstruction, improving Hepatic steatosis Hepatomegaly Cholelithiasis Possible choledocholithiasis and passed stone Plan NPO IV fluids Potassium replacement IV Protonix GI consult Surgical consult Pain management as needed Full code Advance directives discussed for 16 minutes Plan discussed with: Patient My Orders Orders - LENNIE ROMANO MD Procedure Category Date Status Time * Surgical Consult CONS 12/29/24 Transmitted Potassium Chl PHA 12/29/24 Logged 20meq/100ml 12:30 Complete Blood Count LAB 12/30/24 Verified 04:00 Comprehensive LAB 12/30/24 Verified Metabolic Panel 04:00 Magnesium LAB 12/30/24 Verified 04:00 Lipase LAB 12/30/24 Verified 04:00 Lipid Panel LAB 12/30/24 Verified 04:00 Date of Service: Dec 29, 2024 Billing Provider: LENNIE ROMANO MD Common Visit Codes: [id number] INP/OBS CARE(HIGH) Secondary Visit Codes: [id number] CARE PLAN 30 MINUTES LENNIE ROMANO MD Dec 29, 2024 12:24
[2024-12-29] MEDS: D5W/SOD CHL 0.45%/KCL 20MEQ 1,000 ML IV SCH (12:30)
[2024-12-29] MEDS: SODIUM CHL 0.9% 100 ML IV ONE (12:30)
[2024-12-29] MEDS: POTASSIUM CHL 20MEQ/50ML 50 ML IV ONE (12:30)
--- NOTE | 2024-12-29 14:01 | DVHINCON2 ---
Date of service: Dec 29, 2024 Family History: Patient reports no known family medical history. Allergies: Coded Allergies: NO KNOWN ALLERGIES (Unverified , 12/27/24) Current Medications Current Medications Medications (Trade) Dose Ordered Sig/[place] Route PRN Reason Start Time Stop Time Status Last Admin Potassium Chloride/Dextrose/ Sod Cl 1,000 ml @ 100 mls/hr Q10H IV 12/29/24 12:30 Vital Signs Vital Signs Date Time Temp Pulse Resp B/P (MAP) Pulse Ox O2 Delivery O2 Flow Rate FiO2 12/29/24 09:00 98.7 77 18 111/73 (86) 94 98.7 12/28/24 20:00 Room Air* 0 21 Labs/Diagnostic Data Labs Test 12/29/24 05:46 12/28/24 11:13 12/27/24 21:54 Range/Units White Blood Count 7.0 4.4-10.8 10^3/uL Red Blood Count 3.92 L 4.0-5.20 10^6/uL Hemoglobin 11.3 L 12.2-16.2 g/dL Hematocrit 33.5 L 36.0-46.0 % Mean Corpuscular Volume 85.6 80.0-100.0 fL Mean Corpuscular Hemoglobin 28.8 28.0-32.0 pg Mean Corpuscular Hemoglobin Concent 33.7 32.0-36.0 g/dL Red Cell Distribution Width 15.6 H 11.8-14.3 % Platelet Count 218 140-450 10^3/uL Mean Platelet Volume 8.6 6.9-10.8 fL Neutrophils (%) (Auto) 64.1 37.0-80.0 % Lymphocytes (%) (Auto) 25.1 10.0-50.0 % Monocytes (%) (Auto) 8.5 0.0-12.0 % Eosinophils (%) (Auto) 2.0 0.0-7.0 % Basophils (%) (Auto) 0.3 0.0-2.0 % Neutrophils # (Auto) 4.5 1.6-8.6 10 ^3/uL Lymphocytes # (Auto) 1.8 0.4-5.4 10 ^3/uL Monocytes # (Auto) 0.6 0-1.3 10 ^3/uL Eosinophils # (Auto) 0.1 0-0.8 10 ^3/uL Basophils # (Auto) 0 0-0.2 10 ^3/uL Nucleated Red Blood Cells 0.0 % Sodium Level 138 136-145 mmol/L Potassium Level 3.3 L 3.5-5.1 mmol/L Chloride Level 107 98-107 mmol/L Carbon Dioxide Level 23 20-31 mmol/L Anion Gap 8 5-15 Blood Urea Nitrogen < 5 L 9-23 mg/dL Creatinine 0.58 0.550-1.02 mg/dL Glomerular Filtration Rate Calc 115 >90 mL/min BUN/Creatinine Ratio 8.6 L 10.0-20.0 Serum Glucose 225 H 74-106 mg/dL Calcium Level 8.6 L 8.7-10.4 mg/dL Total Bilirubin 1.0 0.2-1.0 mg/dL Aspartate Amino Transferase (AST) 90 H 13-40 U/L Alanine Aminotransferase (ALT) 247 H 7-40 U/L Alkaline Phosphatase 173 H 46-116 U/L Total Protein 6.0 5.7-8.2 g/dL Albumin 3.7 3.2-4.8 g/dL Lipase 401 H 12-53 U/L Hepatitis A IgM Antibody Negative Hepatitis A Antibody Total Positive H Negative Hepatitis B Surface Antigen Negative Negative Hepatitis B Surface Antibody Negative Negative Hepatitis B Core Total Antibody Negative Negative Hepatitis B Core IgM Antibody Negative Negative Hepatitis C Antibody Negative Negative Urine Color Dark-yellow Yellow Urine Clarity Clear Clear Urine pH 5.5 5.0-9.0 Urine Specific [place] 1.038 H 1.001-1.035 Urine Protein Negative Negative Urine Ketones 1+ H Negative Urine Blood Negative Negative /uL Urine Nitrite Negative Negative Urine Bilirubin 2+ H Negative Urine Urobilinogen Normal Negative mg/dL Urine Leukocyte Esterase Negative Negative /uL Urine RBC 1 0 - 4 /hpf Urine Microscopic WBC 1 0-5 /HPF Urine Squamous Epithelial Cells Few <5 /hpf Urine Bacteria None seen None Seen /hpf Urine Glucose 4+ H Normal mg/dL Urine Test Negative Negative Urine Opiates Screen Neg NEGATIVE Urine Fentanyl Screen Pos NEGATIVE Urine Barbiturates Screen Neg NEGATIVE Urine Phencyclidine Screen Neg NEGATIVE Urine Amphetamines Screen Neg NEGATIVE Urine Benzodiazepines Screen Neg NEGATIVE Urine Cocaine Screen Neg NEGATIVE Urine Cannabinoids Screen Neg NEGATIVE Assessment [id number] AC GALLSTONE PANCREATITIS KEEP NPO ALLOW PANCREATITIS TO RESOLVE AND THEN CONSIDER LAP/OPEN CHOLECYSTECTOMY ELECTIVE OR EMERGENT BASED ON ONGOING EVAL Plan discussed with: Patient CAITLYN DOS SANTOS MD Dec 29, 2024 14:01
--- NOTE | 2024-12-29 14:11 | DVHINCON2 ---
DATE OF CONSULTATION: 12/29/2024 HISTORY OF PRESENT ILLNESS: A 44 years old, coming in with right upper quadrant pain off and on, some nausea, no vomiting, no constipation, diarrhea. No hematemesis, melena. No bleeding per rectum. PAST MEDICAL HISTORY: No diabetes, hypertension. PAST SURGICAL HISTORY: Nothing significant. PHYSICAL EXAMINATION: VITAL SIGNS: Afebrile, stable signs. HEENT: With no evidence of pallor, cyanosis, or jaundice. NECK: Supple, nontender with no thyromegaly, lymphadenopathy. CHEST AND LUNGS: Clear. HEART: Within normal limits. ABDOMEN: Soft, tender in the right upper quadrant with no rebound. EXTREMITIES: Unremarkable. NEUROLOGIC: Intact. CLINICAL IMPRESSION: Acute gallstone-induced pancreatitis. Amylase and lipase levels are elevated with LFTs elevation as well. The CBD is cleared for choledocholithiasis. She has cholelithiasis as well as rule out acute cholecystitis. At this point, she has pancreatitis. PLAN: Will be to keep her n.p.o., allow the pancreatitis resolves and then consider elective or emergent surgery based upon ongoing evaluation. MD MAEVE Mendoza/TERELL TID: [id number] RECEIPT: [id number] cc: Uriel Sanchez MD
[2024-12-30 01:00] VITALS: BP 108/53; PULSE 77; RESP 17; TEMP 98.5; O2SAT 98
[2024-12-30 05:00] VITALS: BP 97/50; PULSE 83; RESP 17; TEMP 98.4; O2SAT 98
[2024-12-30 05:22] LABS: Basophils # (auto) 0 10 ^3/uL (0-0.2); Basophils % (auto) 0.4 % (0.0-2.0); Eosinophils # (auto) 0.2 10 ^3/uL (0-0.8); Eosinophils % (auto) 2.8 % (0.0-7.0); Hematocrit 35.7 % (36.0-46.0); Hemoglobin 11.8 g/dL (12.2-16.2); Lymphocytes # (auto) 2.2 10 ^3/uL (0.4-5.4); Lymphocytes % (auto) 30.9 % (10.0-50.0); Mean Corpuscular Hemoglobin 28.1 pg (28.0-32.0); Mean Corpuscular Hgb Conc. 33.1 g/dL (32.0-36.0); Mean Corpuscular Volume 84.8 fL (80.0-100.0); Monocytes # (auto) 0.6 10 ^3/uL (0-1.3); Monocytes % (auto) 8.6 % (0.0-12.0); Neutrophils % (auto) 57.3 % (37.0-80.0); Nucleated Red Blood Cells % 0.1 %; Platelet Count (auto) 241 10^3/uL (140-450); Red Blood Cells 4.21 10^6/uL (4.0-5.20); Red Cell Distribution Width 15.4 % (11.8-14.3)
[2024-12-30 05:43] LABS: Albumin 4.2 g/dL (3.2-4.8); Anion Gap 9 (5-15); Calcium 9.3 mg/dL (8.7-10.4); Carbon Dioxide 24 mmol/L (20-31); Chloride 106 mmol/L (98-107); Magnesium 1.8 mg/dL (1.6-2.6); Sodium 139 mmol/L (136-145); Total Protein 6.8 g/dL (5.7-8.2)
[2024-12-30 05:44] LABS: Bilirubin, Total 0.9 mg/dL (0.2-1.0)
[2024-12-30 05:45] LABS: Alanine Aminotransferase 191 U/L (7-40); Alkaline Phosphatase 167 U/L (46-116); Aspartate Aminotransferase 55 U/L (13-40); BUN/Creatinine Ratio 8.5 (10.0-20.0); Blood Urea Nitrogen < 5 mg/dL (9-23); Glucose 204 mg/dL (74-106); Lipase 78 U/L (12-53); Potassium 3.4 mmol/L (3.5-5.1)
[2024-12-30 06:02] LABS: HDL Cholesterol 42 mg/dL (40-59)
[2024-12-30 06:03] LABS: Cholesterol 200 mg/dL (< 200); LDL Cholesterol 138 mg/dL (< 100); Triglycerides 181 mg/dL (< 150)
[2024-12-30 08:00] VITALS: PULSE 85; RESP 18; O2SAT 96
[2024-12-30 08:50] VITALS: BP 101/59; PULSE 72; RESP 15; TEMP 98.1; O2SAT 94
[2024-12-30] MEDS: POTASSIUM EFFERVESENT TAB 25 MEQ PO ONE (10:25)
--- NOTE | 2024-12-30 10:48 | DVHDS2 ---
Discharge Summary Date of Admission Dec 28, 2024 at 00:57 Date of Discharge: Dec 30, 2024 Labs/Diagnostic Data: Laboratory Results Test 12/30/24 04:51 12/28/24 11:13 12/27/24 21:54 White Blood Count 7.0 10^3/uL (4.4-10.8) Red Blood Count 4.21 10^6/uL (4.0-5.20) Hemoglobin 11.8 g/dL (12.2-16.2) Hematocrit 35.7 % (36.0-46.0) Mean Corpuscular Volume 84.8 fL (80.0-100.0) Mean Corpuscular Hemoglobin 28.1 pg (28.0-32.0) Mean Corpuscular Hemoglobin Concent 33.1 g/dL (32.0-36.0) Red Cell Distribution Width 15.4 % (11.8-14.3) Platelet Count 241 10^3/uL (140-450) Mean Platelet Volume 8.4 fL (6.9-10.8) Neutrophils (%) (Auto) 57.3 % (37.0-80.0) Lymphocytes (%) (Auto) 30.9 % (10.0-50.0) Monocytes (%) (Auto) 8.6 % (0.0-12.0) Eosinophils (%) (Auto) 2.8 % (0.0-7.0) Basophils (%) (Auto) 0.4 % (0.0-2.0) Neutrophils # (Auto) 4.0 10 ^3/uL (1.6-8.6) Lymphocytes # (Auto) 2.2 10 ^3/uL (0.4-5.4) Monocytes # (Auto) 0.6 10 ^3/uL (0-1.3) Eosinophils # (Auto) 0.2 10 ^3/uL (0-0.8) Basophils # (Auto) 0 10 ^3/uL (0-0.2) Nucleated Red Blood Cells 0.1 % Sodium Level 139 mmol/L (136-145) Potassium Level 3.4 mmol/L (3.5-5.1) Chloride Level 106 mmol/L (98-107) Carbon Dioxide Level 24 mmol/L (20-31) Anion Gap 9 (5-15) Blood Urea Nitrogen < 5 mg/dL (9-23) Creatinine 0.59 mg/dL (0.550-1.02) Glomerular Filtration Rate Calc 115 mL/min (>90) BUN/Creatinine Ratio 8.5 (10.0-20.0) Serum Glucose 204 mg/dL (74-106) Calcium Level 9.3 mg/dL (8.7-10.4) Magnesium Level 1.8 mg/dL (1.6-2.6) Total Bilirubin 0.9 mg/dL (0.2-1.0) Aspartate Amino Transferase (AST) 55 U/L (13-40) Alanine Aminotransferase (ALT) 191 U/L (7-40) Alkaline Phosphatase 167 U/L (46-116) Total Protein 6.8 g/dL (5.7-8.2) Albumin 4.2 g/dL (3.2-4.8) Triglycerides Level 181 mg/dL (< 150) Cholesterol Level 200 mg/dL (< 200) LDL Cholesterol 138 mg/dL (< 100) HDL Cholesterol 42 mg/dL (40-59) Lipase 78 U/L (12-53) Hepatitis A IgM Antibody Negative Hepatitis A Antibody Total Positive (Negative) Hepatitis B Surface Antigen Negative (Negative) Hepatitis B Surface Antibody Negative (Negative) Hepatitis B Core Total Antibody Negative (Negative) Hepatitis B Core IgM Antibody Negative (Negative) Hepatitis C Antibody Negative (Negative) Urine Color Dark-yellow (Yellow) Urine Clarity Clear (Clear) Urine pH 5.5 (5.0-9.0) Urine Specific [place] 1.038 (1.001-1.035) Urine Protein Negative (Negative) Urine Ketones 1+ (Negative) Urine Blood Negative /uL (Negative) Urine Nitrite Negative (Negative) Urine Bilirubin 2+ (Negative) Urine Urobilinogen Normal mg/dL (Negative) Urine Leukocyte Esterase Negative /uL (Negative) Urine RBC 1 /hpf (0 - 4) Urine Microscopic WBC 1 /HPF (0-5) Urine Squamous Epithelial Cells Few /hpf (<5) Urine Bacteria None seen /hpf (None Seen) Urine Glucose 4+ mg/dL (Normal) Urine Test Negative (Negative) Urine Opiates Screen Neg (NEGATIVE) Urine Fentanyl Screen Pos (NEGATIVE) Urine Barbiturates Screen Neg (NEGATIVE) Urine Phencyclidine Screen Neg (NEGATIVE) Urine Amphetamines Screen Neg (NEGATIVE) Urine Benzodiazepines Screen Neg (NEGATIVE) Urine Cocaine Screen Neg (NEGATIVE) Urine Cannabinoids Screen Neg (NEGATIVE) Other Laboratory Tests 12/30/24 04:51 Brief Hx & Hospital Course: Final diagnoses: Abdominal pain due to gallstone pancreatitis Acute pancreatitis improving Biliary obstruction, improving Hepatic steatosis Hepatomegaly Cholelithiasis Possible choledocholithiasis and passed stone Hypokalemia Mixed hyperlipidemia 44-year-old female who was admitted for abdominal pain and was found to have a biliary obstruction with elevated liver function tests and elevated bilirubin and acute pancreatitis due to gallstones She was treated conservatively MRCP initially showed possible choledocholithiasis but then she improved and the bilirubin and liver function tests improved and became asymptomatic and therefore a 2nd MRCP was done showed improvement and no evidence of common bile duct stones This morning she is asymptomatic and her labs look better with a normal bilirubin, liver functions are coming down also Triglycerides 181 cholesterol 200 LDL 138 and lipase of 78 today She will be given clear liquid diet this morning and then a soft diet for lunch and if she tolerates her diet she can be discharged home She will need a statin for her hyperlipidemia She was educated about staying on a low-fat diet Replace potassium by mouth and then discharged home in the afternoon Follow up with her primary care physician as soon as possible to get a referral to General surgery for an outpatient cholecystectomy For the hyperlipidemia she will be given Lipitor 40 mg daily Condition at Discharge: Stable Final Diagnosis/Problems List Abdominal pain due to gallstone pancreatitis Acute pancreatitis improving Biliary obstruction, improving Hepatic steatosis Hepatomegaly Cholelithiasis Possible choledocholithiasis and passed stone Mixed hyperlipidemia Discharge Disposition: Home SNF Discharge Will this Physician continue t: No Discharge Statement: "Patient was advised to return to the ER or call 911 if any headaches, dizziness, shortness of breath, chest pain, abdominal pain, bleeding, fevers, or worsening of medical condition. Patient was counseled about treatment plan, medications, possible side effects, patientverbalized understanding. All questions were answered to the best of my ability. This discharge took greater then 30 minutes in planning, reviewing documentation, counseling the patient, and discussing with other team members." ASSESSMENT ASSESSMENT Assessment Date of Service: Dec 30, 2024 Billing Provider: LENNIE ROMANO MD Common Visit Codes: [id number] DISCH DAY >30min LENNIE ROMANO MD Dec 30, 2024 10:48
[2024-12-30] MEDS ORDERED: ATOR-507 PO (10:49)
[2024-12-30 13:00] VITALS: BP 124/66; PULSE 71; RESP 16; TEMP 98.1; O2SAT 100
--- NOTE | 2024-12-30 22:06 | DVHPN2 ---
Progress Note - Dictate Date Seen: Dec 30, 2024 (Late entry Time of visit was 12:30 p.m.) Medical Necessity Reason Pt with a Central, PICC or Fol: No Subjective No new complaints Patient is feeling better She is tolerating a clear liquid diet Liver enzymes are trending down Lipase is down to 78 vital signs Vital Sign Date Time Temp Pulse Resp B/P (MAP) Pulse Ox O2 Delivery O2 Flow Rate FiO2 12/30/24 13:00 98.1 71 16 124/66 (85) 100 98.1 12/30/24 08:00 Room Air* 0 21 Total Intake and Output 12/29/24 12/29/24 12/30/24 15:00 23:00 07:00 Intake Total 100 ml 0 ml Balance 100 ml 0 ml objective VITAL SIGNS: Afebrile, stable signs. HEENT: With no evidence of pallor, cyanosis, or jaundice. NECK: Supple, nontender with no thyromegaly, lymphadenopathy. CHEST AND LUNGS: Clear. HEART: Within normal limits. ABDOMEN: Soft, tender in the right upper quadrant with no rebound. EXTREMITIES: Unremarkable. NEUROLOGIC: Intact. laboratory and microbiology Laboratory Tests 12/30/24 04:51 Test 12/30/24 04:51 Range/Units Serum Glucose 204 H 74-106 mg/dL Problems(with codes): (1) Gallstone pancreatitis (2) Elevated liver enzymes (3) Hepatic steatosis (4) Acute pancreatitis (5) Hepatomegaly Prognosis Plan Surgical consult is appreciated Discharge planning is in progress Patient was advised to stay on a liquid diet and then advance to low-fat diet Outpatient surgical follow up for elective cholecystectomy Outpatient follow up with GI Services as needed Once again thank you for allowing me to participate in the care of this patient Dietary Evaluation Review Comments: 1. Monitor A1c & POC Glu 2. Advance diet as medically feasible 3. Continue current plan of care Expected Outcomes/Goals: Pt will meet >75% estimated needs FU 2-3 days Plan discussed with: Patient HEATHER DOS SANTOS MD Dec 30, 2024 22:06
== END 2024-12-30 12:30 | disposition home or self-care (01) ==
LOC: ER 21:37 → OVERFLOW 12-28 00:57 → WEST WING 12-28 03:11
PROVIDERS: ADMIT Internal Medicine Geriatric Medicine; ATTEND Internal Medicine Geriatric Medicine
DX: K80.71 Calculus of gallbladder and bile duct without cholecystitis with obstruction (principal); K85.10 Biliary acute pancreatitis without necrosis or infection; K76.0 Fatty (change of) liver, not elsewhere classified; R16.0 Hepatomegaly, not elsewhere classified; E78.2 Mixed hyperlipidemia; R74.01 Elevation of levels of liver transaminase levels; E80.6 Other disorders of bilirubin metabolism; E87.6 Hypokalemia; Z79.899 Other long term (current) drug therapy
CPT/HCPCS: 36415; 74177; 74181; 76705; 80053; 80061; 80074; 80307; 81001; 81025; 83690; 83735; 85025; 86704; 86706; 86708; 86803; 87340; 96361; 96374; 96375; G0378; J2470; J7042; Q0162

== ENCOUNTER 2025-07-12 17:35 | Inpatient (IN) | payer MEDICAID ==
[~2025-07-12] VITALS: Ht 162.6 cm; Wt 97.1 kg
[~2025-07-12 17:35] MED LIST: ATOR-507 PO
[2025-07-12] MEDS ORDERED: HYDROcodone-ACET 10/325MG TAB PO ONE (18:45)
[2025-07-12 18:57] LABS: Hematocrit 43.6 % (36.0-46.0); Hemoglobin 14.0 g/dL (12.2-16.2); Mean Corpuscular Hemoglobin 27.0 pg (28.0-32.0); Mean Corpuscular Volume 84.2 fL (80.0-100.0); Nucleated Red Blood Cells % 0.0 %
[2025-07-12 19:05] LABS: Urine Budding Yeast OCCASIONAL /hpf (None Seen); Urine Protein, UAD Negative (Negative)
[2025-07-12 19:12] LABS: Albumin 4.5 g/dL (3.2-4.8); Anion Gap 14 (5-15); BUN/Creatinine Ratio 13.3 (10.0-20.0); Blood Urea Nitrogen 11 mg/dL (9-23); Calcium 9.6 mg/dL (8.7-10.4); Carbon Dioxide 21 mmol/L (20-31); Chloride 99 mmol/L (98-107); Potassium 4.0 mmol/L (3.5-5.1); Total Protein 7.4 g/dL (5.7-8.2)
--- NOTE | 2025-07-12 19:36 | DVH ---
EXAM: US GALLBLADDER HISTORY: RUQ pain COMPARISON: MRI MRCP MRI on DOS: 12/29/24 TECHNIQUE: Multiple longitudinal and transverse sonographic images of the abdomen were obtained. Dopp ler was applied as indicated. FINDINGS: [PANCREAS]: The visualized portions of the pancreas are unremarkable. [AORTA]: Normal [LIVER]: 18.3 cm. heterogeneous, increased echogenicity. There is no focal hepatic mass lesion detect ed. [GALLBLADDER]: Gallbladder wall measures 0.2 cm. There is no gallbladder sludge or shadowing gallston e. There is no sonographic Chen sign. [BILIARY TREE]: Common bile duct measures 1.1 cm in diameter. no intrahepatic biliary ductal dilatati on. [ASCITES]: No free fluid is demonstrated. [VESSELS]: The main portal vein is patent on color Doppler evaluation. The inferior vena cava is jaramillo nt on color Doppler evaluation. [RIGHT KIDNEY]: 10.6 cm. normal cortical echogenicity and normal contour. No hydronephrosis. IMPRESSION: 1. Cholelithiasis without sonographic evidence of acute cholecystitis. 2. Heterogeneously echogenic liver, which is a nonspecific finding and may represent hepatic steatosi s and/or other underlying hepatocellular pathology.
--- NOTE | 2025-07-12 19:36 | ED.PDOC ---
History of Present Illness HPI Comments 45 y/o obese F, with a history of gallstones, presents with c/c of nonradiating, epigastric abdominal pain. Patient endorses on sudden, unprovoked, and atraumatic onset of pain, this morning. She reports associated nausea and multiple episodes of vomiting prior to coming to ED. She states on pain feeling similar to when she had gallstones in the past. Denies having any bloody or bilious vomitus, diarrhea, constipation, urinary symptoms, or further associated symptoms. 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 Family History Family History: Reviewed,noncontributory to illness, No family hx of Cancer, No family hx of DM, No family hx of Heart chica, No family hx of HTN, No family hx ofKidney chica, No family hx of Liver chica, No family hx of Lung chica, No family hx of Stroke Social History Smoker: Non-Smoker Alcohol: Denies ETOH Use Drugs: Denies Drug Use Lives In: Home All Other Systems: Reviewed and Negative (Comprehensive review of systems are negative unless stated in HPI) Physical Exam General Appearance: Mild Distress, Obese HEENT: Normal ENT Inspection, Pharynx Normal, TMs Normal Neck: Full Range of Motion, Non-Tender, Normal, Normal Inspection Respiratory: Chest Non-Tender, Lungs Clear, No Accessory Muscle Use, No Re spiratory Distress, Normal Breath Sounds Cardiovascular: No Edema, No JVD, No Murmur, No Gallop, Normal Peripheral Pulses, Regular Rate/Rhythm Breast Exam: Deferred Gastrointestinal: Epigastric (tenderness ), No Organomegaly, No Pulsatile Mass, Normal Bowel Sounds, Soft, Tenderness (epigastric region ) Genitalia: Deferred Pelvic: Deferred Rectal: Deferred Extremities: No calf tenderness, Normal capillary refill, Normal inspection, Normal range of motion, Non-tender, No pedal edema Musculoskeletal : Apperance: Normal Neurologic: Alert, 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 Was a procedure done?: No Differential Dx Considerations may include: gastritis, gastroenteritis, GERD, cholelithiasis, cholecystitis, nephrolithiasis, UTI, among others X-Ray, Labs, Meds, VS Vital Signs Date Time Temp Pulse Resp B/P (MAP) Pulse Ox O2 Delivery O2 Flow Rate FiO2 07/12/25 17:37 97.8 94 15 128/97 98 97.8 Lab Test 07/12/25 18:55 07/12/25 18:37 Range/Units Urine Color Dark-yellow Yellow Urine Clarity Clear Clear Urine pH 5.5 5.0-9.0 Urine Specific [place] 1.028 1.001-1.035 Urine Protein Negative Negative Urine Ketones 2+ H Negative Urine Blood Negative Negative /uL Urine Nitrite 1+ H Negative Urine Bilirubin Negative Negative Urine Urobilinogen Normal Negative mg/dL Urine Leukocyte Esterase Negative Negative /uL Urine RBC 3 0 - 4 /hpf Urine Microscopic WBC 8 H 0-5 /HPF Urine Squamous Epithelial Cells Few <5 /hpf Urine Bacteria None seen None Seen /hpf Urine Yeast (Budding) Occasional None Seen /hpf Urine Glucose 4+ H Normal mg/dL Urine Test Negative Negative White Blood Count 14.9 H 4.4-10.8 10^3/uL Red Blood Count 5.19 4.0-5.20 10^6/uL Hemoglobin 14.0 12.2-16.2 g/dL Hematocrit 43.6 36.0-46.0 % Mean Corpuscular Volume 84.2 80.0-100.0 fL Mean Corpuscular Hemoglobin 27.0 L 28.0-32.0 pg Mean Corpuscular Hemoglobin Concent 32.1 32.0-36.0 g/dL Red Cell Distribution Width 15.0 H 11.8-14.3 % Platelet Count 335 140-450 10^3/uL Mean Platelet Volume 8.9 6.9-10.8 fL Neutrophils (%) (Auto) 90.7 H 37.0-80.0 % Lymphocytes (%) (Auto) 6.3 L 10.0-50.0 % Monocytes (%) (Auto) 2.9 0.0-12.0 % Eosinophils (%) (Auto) 0.0 0.0-7.0 % Basophils (%) (Auto) 0.1 0.0-2.0 % Neutrophils # (Auto) 13.5 H 1.6-8.6 10 ^3/uL Lymphocytes # (Auto) 0.9 0.4-5.4 10 ^3/uL Monocytes # (Auto) 0.4 0-1.3 10 ^3/uL Eosinophils # (Auto) 0 0-0.8 10 ^3/uL Basophils # (Auto) 0 0-0.2 10 ^3/uL Nucleated Red Blood Cells 0.0 % Sodium Level 134 L 136-145 mmol/L Potassium Level 4.0 3.5-5.1 mmol/L Chloride Level 99 98-107 mmol/L Carbon Dioxide Level 21 20-31 mmol/L Anion Gap 14 5-15 Blood Urea Nitrogen 11 9-23 mg/dL Creatinine 0.83 0.550-1.02 mg/dL Glomerular Filtration Rate Calc 89 >90 mL/min BUN/Creatinine Ratio 13.3 10.0-20.0 Serum Glucose 466 *H 74-106 mg/dL Calcium Level 9.6 8.7-10.4 mg/dL Total Bilirubin 2.7 H 0.2-1.0 mg/dL Aspartate Amino Transferase (AST) 503 H 13-40 U/L Alanine Aminotransferase (ALT) 321 H 7-40 U/L Alkaline Phosphatase 299 H 46-116 U/L Total Protein 7.4 5.7-8.2 g/dL Albumin 4.5 3.2-4.8 g/dL Lipase > 3500 H 12-53 U/L Time of 1ST Reevaluation: 16:40 Reevaluation 1ST: Unchanged Patient Education/Counseling: Diagnosis, Treatment, Need For Follow Up Family Education/Counseling: No Family Present SEPSIS Sepsis Screen Date sepsis recognized/suspect: Jul 12, 2025 Time Sepsis recognized/suspect: 1737 Recent Procedure: No On Antibiotic Therapy: No Respiratory Rate >20: No Heart Rate >90: No Temp<36 C (96.8 F) or >38.3 C: No SBP <90 or MAP <65 mmHG: No New Acute Mental Status Change: No Is the patient on CPAP, BIPAP,: No Physician Orders Gallbladder (07/12/25 18:34) NS (07/12/25 20:00) Insulin R (Human) (Insulin R) (07/12/25 20:00) Vital Signs Date Time Temp Pulse Resp B/P (MAP) Pulse Ox O2 Delivery O2 Flow Rate FiO2 07/12/25 17:37 97.8 94 15 128/97 98 97.8 Laboratory Tests Test 07/12/25 18:37 White Blood Count 14.9 10^3/uL (4.4-10.8) H Departure 1 Departure Time of Disposition: 19:50 Impression: Primary Impression: Gallstone pancreatitis Additional Impressions: Hepatic steatosis Elevated liver enzymes Type 2 diabetes mellitus with hyperglycemia Disposition: ADMITTED INPATIENT Admit to: Med Surg Condition: Guarded Discharged With: Self Comments 45-year-old female with severe epigastric pain. Lab and imaging results reviewed. Gallstones noted on ultrasound. White blood cell count elevated at 15. Severe hyperglycemia 466. LFTs elevated with a total bilirubin elevated 2.7. AST and ALT elevated at 503 and 321. Alk-phos elevated at 299. Lipase is high at greater than 3 3500. Patient was given IV fluids and insulin and pain medications. Patient will need to be admitted for supportive care and further workup. Critical Care Note Critical Care Time?: No Stability Stability form required: No Heart Score Heart Score: Heart Score Response (Comments) Value History N/A 0 EKG N/A 0 Age N/A 0 Risk Factors N/A 0 Troponin N/A 0 Total 0 I personally scribed for ALVA MIKE MD ([email or web address]) on 07/12/25 at 19:36. Electronically submitted by Kemal Lombardo ([email or web address]). ALVA MIKE MD Jul 12, 2025 19:36
[2025-07-12 19:37] LABS: Alanine Aminotransferase 321 U/L (7-40); Alkaline Phosphatase 299 U/L (46-116); Bilirubin, Total 2.7 mg/dL (0.2-1.0); Sodium 134 mmol/L (136-145)
[2025-07-12 19:38] LABS: Lipase > 3500 U/L (12-53)
[2025-07-12 19:39] LABS: Glucose 466 mg/dL (74-106)
[2025-07-12] MEDS: ONDANSETRON ODT 4 MG TAB PO ONE (20:52)
[2025-07-12] MEDS: DICYCLOMINE HCL (10MG/ML) 2 ML AMPULE IM ONE (20:53)
[2025-07-12] MEDS: InsuLIN REG 1unit/0.01ml Soln (100units/ml) SC ONE (20:54)
[2025-07-12] MEDS: SODIUM CHLORIDE 0.9% 1,000 ML IV ONE (20:59)
[2025-07-12] MEDS ORDERED: ONDANSETRON HCL 4 MG/2 ML VIAL IV PRN (21:00)
[2025-07-12] MEDS: HYDROmorphone HCL 2 MG/ML VL/or syr IV ONE (21:02)
[2025-07-12 21:06] VITALS: PULSE 102; RESP 19; O2SAT 96
[2025-07-12] MEDS: PANTOPRAZOLE 40 MG/10 ML VIAL INJ IV ONE (21:31)
--- NOTE | 2025-07-12 21:31 | DVH ---
CHEST RADIOGRAPH Indication: Sepsis Technique: Single frontal view of the chest was obtained Comparison: None FINDINGS: Lines and Tubes: None Lungs: Mildly prominent bronchovascular markings in both lung bases. May represent chronic disease. N o prior studies for comparison Pleura: No effusion. No pneumothorax. Cardiomediastinal contours: Unremarkable Bones: No acute osseous abnormality. IMPRESSION: 1. Bibasilar bronchial markings. May be acute or chronic.
[2025-07-12 21:37] LABS: Magnesium 2.0 mg/dL (1.6-2.6)
[2025-07-12 21:38] LABS: Cholesterol 191.0 mg/dL (< 200)
[2025-07-12 21:39] LABS: HDL Cholesterol 62.0 mg/dL (40-59); Triglycerides 234.0 mg/dL (< 150)
--- NOTE | 2025-07-12 21:43 | DVH ---
Exam: CT CT AB PEL WO CON-NO ORAL OR IV History: Pancreatitis Comparison Study: CT CT AB PEL WITH IV CON ONLY on DOS: 12/27/24 Technique: Multidetector spiral CT of the abdomen was performed from lung bases to pubic symphysis. I maging was performed without IV contrast. Axial, coronal and sagittal multiplanar reformats were obta ined from the axial data set by the technologist. Radiation Dose : 1. Abdomen/Pelvis: CTDIvol 12.82 mGy, DLP 670.33 mGy*cm. Findings: Evaluation of solid organs is limited due to lack of intravenous contrast use. Lung Bases: No acute or significant lung base finding. Normal heart size. No pleural or pericardial effusion. Liver: The liver is normal in size. No focal lesions. Gallbladder and Biliary Tree: Unremarkable Spleen: Unremarkable Pancreas: Diffuse parenchymal edema with peripancreatic edema. No obvious organized fluid collections . Adrenal Glands: Unremarkable Kidneys: Kidneys are grossly normal without calculi or hydronephrosis. Bladder: Grossly unremarkable for degree of distention. Bowel: The stomach is grossly normal in appearance. Small bowel and colon are normal in caliber and d istribution. Normal appendix is visualized in the right lower quadrant without findings of appendicit is. Ascites: Absent Lymphadenopathy: No mesenteric, retroperitoneal or periportal lymphadenopathy. Abdominal Wall and Mesentery: Unremarkable. Vasculature: The visualized abdominal aorta is normal in size and caliber. Evaluation of abdominal a nd pelvic vessels is limited due to lack of intravenous contrast. Pelvic Organs: Unremarkable Musculoskeletal: No aggressive focal bony lesions, acute fractures or dislocation. IMPRESSION: Acute pancreatitis with no complications seen on unenhanced CT. Radiation optimization: All CT scans at this facility use at least one of these dose optimization jared hniques: automated exposure control mA and/or kV adjustment per patient size (includes targeted exam s where dose is matched to clinical indication) or iterative reconstruction.
[2025-07-12 21:44] LABS: Amphetamine Screen, Urine Neg (NEGATIVE); Barbiturate Scree,Urine Neg (NEGATIVE); Benzodiazephine Screen, Urine Neg (NEGATIVE); Cannabinoid Screen, Urine Neg (NEGATIVE); Cocaine Screen, Urine Neg (NEGATIVE); Opiate Scree,Urine Neg (NEGATIVE); Phencyclidine Screen, Urine Neg (NEGATIVE)
[2025-07-12 22:15] LABS: INR 1.01 (0.9-1.15); Partial Thromboplastin Time 24.2 SEC (24.5-34.5); Prothrombin Time 10.7 sec (9.3-11.8)
[2025-07-12] MEDS ORDERED: DEXTROSE (50%) 50ML SYRG IV PRN (22:30)
[2025-07-12 22:31] LABS: Lactic Acid w/Reflex 2.1 mmol/L (0.4-2.0)
[2025-07-13] MEDS: SODIUM CHLORIDE 0.9% 1,000 ML IV ONE ×2 (00:58→12:30)
--- NOTE | 2025-07-13 01:02 | DVHHPRES ---
History of Present Illness Resident Creating Document: ESTEBAN ROJAS RESIDENT History of Present Illness Ms. Jimenez is a 45 year old female with PMHx of Gallstone pancreatitis, who presents today for chief complaint of abdominal pain. the patient refers sudden onset of sharp epigastric pain approximately at 4:00 a.m., which radiates to right upper quadrant, 10/10 intensity, associated with nausea and vomiting, without aggravating or relieving factors. She denies diarrhea, fever, chest pain, chills, diaphoresis, bloody vomitus, and other symptoms. The patient was previously admitted at this institution for pancreatitis in November 2024, at that point in time she was discharged with instructions to follow up with General surgery, which she states she was unable to. Due to persistence of symptoms and inability to keep down any food or liquid, the patient sought medical attention at the emergency department. On evaluation in the ED, the patient was in mild distress, vitals were stable. Initial labs show leukocytosis with neutrophilia, mild hyponatremia, lipase >3500, total bilirubin 2.7, AST 503. ALT 321, ALP 299, and hyperglycemia. UA significant for UTI. UDS negative. Gallbladder ultrasound shows cholelithiasis without sonographic evidence of acute cholecystitis. Abdominal CT shows acute pancreatitis with no complications seen. The patient was placed on NPO, started on IV fluids, IV pain medication, and IV antibiotics. She was admitted for further workup and management. Past medical history: Gallstone pancreatitis in November 2024 Past surgical history: Denies Allergies: Denies Social: Denies drug, alcohol, and tobacco use. States she lives with her and feels safe. Review of Systems Review of Systems Constitutional: Denies weight loss, fever and chills. HEENT: Denies changes in vision and hearing. Respiratory: Denies shortness of breath and cough Cardiovascular: Denies chest discomfort or palpitations GI: Refers epigastric abdominal pain, nausea, and vomiting Denies abdominal distention, diarrhea : Denies dysuria and urinary frequency. Musculoskeletal: Denies pain Skin: Denies rash and pruritus. Neurological: denies dizziness headache vision or hearing problems Allergies: Coded Allergies: NO KNOWN ALLERGIES (Unverified , 12/27/24) Medications Current Medications Medications Dose Ordered Sig/Orville Route Start Time Stop Time Status Last Admin Dose Admin Pantoprazole Sodium 40 mg DAILY IV 07/13/25 10:00 Ondansetron HCl 4 mg Q4HPRN PRN IV 07/12/25 21:00 Sodium Chloride 1,000 ml @ 75 mls/hr [id number] IV 07/12/25 22:30 Ceftriaxone Sodium 50 ml @ 100 mls/hr DAILY@09 IV 07/13/25 09:00 Ketorolac Tromethamine 15 mg Q6HPRN PRN IV 07/12/25 22:30 07/17/25 22:29 Diagnostic Test (Pha) 1 strip ACHS 07/13/25 07:00 Insulin Human Regular HS SC 07/13/25 22:00 Insulin Human Regular AC SC 07/13/25 07:00 Dextrose 50 ml UD PRN IV 07/12/25 22:30 Exam Vital Signs Vital Signs Date Time Temp Pulse Resp B/P (MAP) Pulse Ox O2 Delivery O2 Flow Rate FiO2 07/12/25 21:30 94 18 100/55 07/12/25 21:06 98.4 96 98.4 07/12/25 21:06 Room Air* 0 21 Exam General: The patient alert and oriented in person place and time. Patient following commands HEENT: Normocephalic, atraumatic, normal reactive pupils, EOM intact, pink conjunctiva, pink dry mucous membrane Respiratory/pulmonary: Bilateral chest expansion, no pain on palpation of chest wall, clear lungs bilaterally, vesicular murmurs present in almost all lung nicolas, no associated crackles or wheezes. Cardiovascular: Normal RRR, normal S1 and S2, no murmurs Abdomen: Obese, Abdomen nondistended, normal bowel sounds, soft, pain on palpation of epigastrium, no palpable masses. Extremities: No deformities, there is no peripheral edema present at the lower extremities, normal pulses Skin: No rashes or pruritus, there is no sacral edema present at this time. Neurological: Intact cranial nerves with no focal neurologic deficits Labs/Xrays Labs Test 07/12/25 23:26 07/12/25 21:31 07/12/25 21:25 07/12/25 20:47 Range/Units Lactic Acid Level 1.9 0.4-2.0 mmol/L Ammonia < 10 L 11-32 umol/L Prothrombin Time 10.7 9.3-11.8 sec Prothrombin Time INR 1.01 0.9-1.15 Activated Partial Thromboplast Time 24.2 L 24.5-34.5 SEC POC Glucose 464 *H 70-106 mg/dl Test 07/12/25 18:55 07/12/25 18:37 Range/Units Urine Color Dark-yellow Yellow Urine Clarity Clear Clear Urine pH 5.5 5.0-9.0 Urine Specific [place] 1.028 1.001-1.035 Urine Protein Negative Negative Urine Ketones 2+ H Negative Urine Blood Negative Negative /uL Urine Nitrite 1+ H Negative Urine Bilirubin Negative Negative Urine Urobilinogen Normal Negative mg/dL Urine Leukocyte Esterase Negative Negative /uL Urine RBC 3 0 - 4 /hpf Urine Microscopic WBC 8 H 0-5 /HPF Urine Squamous Epithelial Cells Few <5 /hpf Urine Bacteria None seen None Seen /hpf Urine Yeast (Budding) Occasional None Seen /hpf Urine Glucose 4+ H Normal mg/dL Urine Test Negative Negative Urine Opiates Screen Neg NEGATIVE Urine Fentanyl Screen Neg NEGATIVE Urine Barbiturates Screen Neg NEGATIVE Urine Phencyclidine Screen Neg NEGATIVE Urine Amphetamines Screen Neg NEGATIVE Urine Benzodiazepines Screen Neg NEGATIVE Urine Cocaine Screen Neg NEGATIVE Urine Cannabinoids Screen Neg NEGATIVE White Blood Count 14.9 H 4.4-10.8 10^3/uL Red Blood Count 5.19 4.0-5.20 10^6/uL Hemoglobin 14.0 12.2-16.2 g/dL Hematocrit 43.6 36.0-46.0 % Mean Corpuscular Volume 84.2 80.0-100.0 fL Mean Corpuscular Hemoglobin 27.0 L 28.0-32.0 pg Mean Corpuscular Hemoglobin Concent 32.1 32.0-36.0 g/dL Red Cell Distribution Width 15.0 H 11.8-14.3 % Platelet Count 335 140-450 10^3/uL Mean Platelet Volume 8.9 6.9-10.8 fL Neutrophils (%) (Auto) 90.7 H 37.0-80.0 % Lymphocytes (%) (Auto) 6.3 L 10.0-50.0 % Monocytes (%) (Auto) 2.9 0.0-12.0 % Eosinophils (%) (Auto) 0.0 0.0-7.0 % Basophils (%) (Auto) 0.1 0.0-2.0 % Neutrophils # (Auto) 13.5 H 1.6-8.6 10 ^3/uL Lymphocytes # (Auto) 0.9 0.4-5.4 10 ^3/uL Monocytes # (Auto) 0.4 0-1.3 10 ^3/uL Eosinophils # (Auto) 0 0-0.8 10 ^3/uL Basophils # (Auto) 0 0-0.2 10 ^3/uL Nucleated Red Blood Cells 0.0 % Sodium Level 134 L 136-145 mmol/L Potassium Level 4.0 3.5-5.1 mmol/L Chloride Level 99 98-107 mmol/L Carbon Dioxide Level 21 20-31 mmol/L Anion Gap 14 5-15 Blood Urea Nitrogen 11 9-23 mg/dL Creatinine 0.83 0.550-1.02 mg/dL Glomerular Filtration Rate Calc 89 >90 mL/min BUN/Creatinine Ratio 13.3 10.0-20.0 Serum Glucose 466 *H 74-106 mg/dL Hemoglobin A1c 12.0 H <5.7 % A1C Calcium Level 9.6 8.7-10.4 mg/dL Phosphorus Level 4.4 2.4-5.1 mg/dL Magnesium Level 2.0 1.6-2.6 mg/dL Total Bilirubin 2.7 H 0.2-1.0 mg/dL Aspartate Amino Transferase (AST) 503 H 13-40 U/L Alanine Aminotransferase (ALT) 321 H 7-40 U/L Alkaline Phosphatase 299 H 46-116 U/L Total Protein 7.4 5.7-8.2 g/dL Albumin 4.5 3.2-4.8 g/dL Triglycerides Level 234 H < 150 mg/dL Cholesterol Level 191 < 200 mg/dL LDL Cholesterol 97 < 100 mg/dL HDL Cholesterol 62 H 40-59 mg/dL Lipase > 3500 H 12-53 U/L Thyroid Stimulating Hormone (TSH) 0.77 0.55-4.78 uIU/mL SEPSIS Sepsis Screen Date sepsis recognized/suspect: Jul 12, 2025 Time Sepsis recognized/suspect: 2105 Recent Procedure: No On Antibiotic Therapy: No Respiratory Rate >20: No Heart Rate >90: Yes Temp<36 C (96.8 F) or >38.3 C: No SBP <90 or MAP <65 mmHG: No New Acute Mental Status Change: No Is the patient on CPAP, BIPAP,: No Physician Orders Gallbladder (07/12/25 18:34) Vitamin D, 25-Hydroxy (07/12/25 20:47) Vitamin B12 (07/12/25 20:47) Blood Culture (07/12/25 20:47) Urine Bacterial Culture (07/12/25 20:47) Respiratory Culture W/ Gs (07/12/25 20:47) Chest Xray 1 View (07/12/25 20:47) Pantoprazole (Protonix) (07/13/25 10:00) Ondansetron Hcl (Zofran) (07/12/25 21:00) Ct Ab Pel Wo Con-No Oral Or Iv (07/12/25 20:47) Sodium Chloride 0.9% (07/12/25 22:30) Ceftriaxone 1gm/50ml (Rocephin) (07/13/25 09:00) Ketorolac Injection (Toradol Injection) (07/12/25 22:30) Glucose Blood (Accu-Chek Comfort Curve T (07/13/25 07:00) Insulin R (Human) (Insulin R) (07/13/25 22:00) Insulin R (Human) (Insulin R) (07/13/25 07:00) Dextrose 50% Syringe (07/12/25 22:30) Admit (07/13/25 00:05) Allergies (07/13/25 00:05) Code Status (07/13/25 00:05) Npo (Nothing By Mouth) Diet (07/13/25 Breakfast) Condition: Stable (07/13/25 00:05) Oxygen By Nasal Cannula (07/13/25 00:05) Stat Ekg For Chest Pain (07/13/25 00:05) Notify Md Of Changes From Base (07/13/25 00:05) Emergency Dysrhythmia Protocol (07/13/25 00:05) Rhythm Strips Once Every Shift (07/13/25 00:05) Vital Signs Date Time Temp Pulse Resp B/P (MAP) Pulse Ox O2 Delivery O2 Flow Rate FiO2 07/12/25 21:30 94 18 100/55 07/12/25 21:06 98.4 102 19 138/72 (94) 96 98.4 07/12/25 21:06 102 19 96 Room Air* 0 21 07/12/25 21:02 102 19 138/72 07/12/25 17:37 97.8 94 15 128/97 98 97.8 Laboratory Tests Test 07/12/25 18:37 07/12/25 21:31 07/12/25 23:26 White Blood Count 14.9 10^3/uL (4.4-10.8) H Lactic Acid Level 2.1 mmol/L (0.4-2.0) *H 1.9 mmol/L (0.4-2.0) Medications Medications Dose Ordered Sig/Orville Route Start Time Stop Time Status Last Admin Dose Admin Dicyclomine HCl 20 mg ONCE ONCE IM 07/12/25 18:45 07/12/25 18:46 DC 07/12/25 20:53 20 MG Hydromorphone HCl 1 mg ONCE ONCE IV 07/12/25 20:45 07/12/25 20:46 DC 07/12/25 21:02 1 MG Insulin Human Regular 5 units ONCE ONCE SC 07/12/25 20:00 07/12/25 20:01 DC 07/12/25 20:54 5 UNITS Ondansetron HCl 8 mg ONCE ONCE PO 07/12/25 18:45 07/12/25 18:46 DC 07/12/25 20:52 8 MG Pantoprazole Sodium 40 mg ONCE ONCE IV 07/12/25 21:00 07/12/25 21:06 DC 07/12/25 21:31 40 MG Sodium Chloride 1,000 ml @ 1,000 mls/hr Q1H ONCE IV 07/12/25 20:00 07/12/25 20:59 DC 07/12/25 20:59 1,000 MLS/HR Assessment/Plan Assessment/Plan Assessment and Plan: Sepsis secondary to Acute Pancreatitis, Lipase > 3500 Intractable nausea and vomiting secondary to above - Abdominal CT: Acute pancreatitis with no complications seen on unenhanced CT - NS 1000 cc IV bolus x2 - NS maintenance 75 cc/hour IV - Zofran 8 mg p.o. once - Zofran 4 mg IV q.4 hours PRN - Dilaudid 1 mg IV once - [employer] 10/325 mg tablet p.o. once - Toradol 50 mg IV q.6 hours PRN - NPO - Blood cultures have been ordered Possible choledocholithiasis R/o Cholangitis - MRCP per primary team. - Monitor LFTs - Ceftriaxone 1 g IV daily - Metronidazole 500 mg IV q.8 hours Cholelithiasis - Gallbladder ultrasound: Cholelithiasis without sonographic evidence of acute cholecystitis Mild hyponatremia, likely hypovolemic - Monitor Sodium Acute Cystitis without hematuria - Ceftriaxone 1 g IV daily - Urine culture has been ordered Uncontrolled Type 2 Diabetes Mellitus with Hyperglycemia, HbA1c 12 - Moderate SSI - Accu-cheks - Consistent Carbohydrate diet once NPO is lifted Hypertriglyceridemia Obesity, BMI 32.2 kg/m2 - I have counseled the patient on healthy lifestyle modifications. Diet: NPO DVT prophylaxis: Patient is ambulatory GI prophylaxis: Protonix 40 mg IV daily Case discussed with Dr. Paul Goals of care discussed with the patient for over 27 minutes. Full Code. Plan discussed with: Patient, Other (Nurses) My Orders Orders - ESTEBAN ROJAS RESIDENT Procedure Category Date Status Time Sodium Chloride 0.9% PHA 07/12/25 In Process 22:30 Ceftriaxone 1gm/50ml PHA 07/13/25 In Process (Rocephin) 09:00 Ketorolac Injection PHA 07/12/25 In Process (Toradol Injection) 22:30 Glucose Blood PHA 07/13/25 In Process (Accu-Chek Comfort 07:00 Insulin R (Human) PHA 07/13/25 In Process (Insulin R) 22:00 Insulin R (Human) PHA 07/13/25 In Process (Insulin R) 07:00 Dextrose 50% Syringe PHA 07/12/25 In Process 22:30 Admit ADMIT 07/13/25 Transmitted 00:05 Allergies RAMIRO 07/13/25 In Process 00:05 Code Status CODE 07/13/25 Transmitted 00:05 Npo (Nothing By DIET 07/13/25 Transmitted Mouth) Diet Breakfast Condition: Stable RAMIRO 07/13/25 In Process 00:05 Oxygen By Nasal RT 07/13/25 Transmitted Cannula 00:05 Stat Ekg For Chest [facility] 07/13/25 In Process Pain 00:05 Notify Of Changes [facility] 07/13/25 In Process From Base 00:05 Emergency Dysrhythmia [facility] 07/13/25 In Process Protocol 00:05 Rhythm Strips Once [facility] 07/13/25 In Process Every Shift 00:05 Date of Service: Jul 13, 2025 Billing Provider: JESUS RESTREPO MD Common Visit Codes: [id number] INP/OBS CARE (HIGH) Secondary Visit Codes: [id number] CARE PLAN 30 MINUTES ESTEBAN ROJAS RESIDENT Jul 13, 2025 01:02 BAYLEE LAURA RESIDENT Jul 13, 2025 08:41
[2025-07-13] MEDS: SODIUM CHLORIDE 0.9% 1,000 ML IV SCH ×2 (02:48→12:15)
[2025-07-13 02:55] LABS: Mean Corpuscular Volume 83.1 fL (80.0-100.0); Nucleated Red Blood Cells % 0.0 %
[2025-07-13 02:58] LABS: Hematocrit 40.9 % (36.0-46.0); Hemoglobin 13.5 g/dL (12.2-16.2); Mean Corpuscular Hemoglobin 27.4 pg (28.0-32.0)
[2025-07-13 03:13] LABS: Albumin 4.3 g/dL (3.2-4.8); Anion Gap 12 (5-15); BUN/Creatinine Ratio 11.1 (10.0-20.0); Calcium 8.8 mg/dL (8.7-10.4); Carbon Dioxide 22 mmol/L (20-31); Chloride 104 mmol/L (98-107); Potassium 4.0 mmol/L (3.5-5.1); Sodium 138 mmol/L (136-145); Total Protein 7.4 g/dL (5.7-8.2)
[2025-07-13 03:20] LABS: Alkaline Phosphatase 272 U/L (46-116); Blood Urea Nitrogen 8 mg/dL (9-23); Glucose 340 mg/dL (74-106)
[2025-07-13 03:21] LABS: Alanine Aminotransferase 308 U/L (7-40); Bilirubin, Total 1.5 mg/dL (0.2-1.0)
[2025-07-13] MEDS: InsuLIN REG 1unit/0.01ml Soln (100units/ml) SC SCH ×2 (07:00→23:34)
[2025-07-13] MEDS: ACCU-CHEK COMFORT CURVE STRIP VI SCH (08:06)
[2025-07-13 09:30] VITALS: BP 115/69; PULSE 74; RESP 18; TEMP 98.3; O2SAT 99
--- NOTE | 2025-07-13 09:38 | DVH ---
CLINICAL INFORMATION: Rule out choledocholithiasis. TECHNIQUE: Multisequence multiplanar MRI images of the abdomen were obtained without IV contrast. Minerva lowry T2-weighted MRCP images were obtained. 3D MRCP images were created. COMPARISON: US GALLBLADDER on DOS: 07/12/25, MRI MRCP MRI on DOS: 12/29/24, US GALLBLADDER on DOS: 12/01 FINDINGS: The gallbladder is filled with gallstones. Common bile duct is dilated up to 8.5 mm in diam eter. No obstructing gallstone visualized. No filling defect or stricture identified in the common bi le duct on MRCP images. There is prominent peripancreatic edema and fluid consistent with acute pancr eatitis. Edema and fluid courses into adjacent portions of the abdomen, including adjacent to the gal lbladder fossa. No organized peripancreatic fluid collection identified. The liver, spleen, adrenal g lands, and kidneys appear grossly unremarkable on limited noncontrast enhanced MRI images. IMPRESSION: 1. Cholelithiasis. 2. Mildly dilated common bile duct. No filling defect or stricture identified in the common bile duct . No obstructing gallstone visualized. 3. Findings consistent with acute pancreatitis.
--- NOTE | 2025-07-13 10:13 | DVHDSRES ---
Discharge Summary Date of Admission Resident Creating Document: DHRUV MAYER Jul 13, 2025 at 00:05 Date of Discharge: Jul 13, 2025 Admitting Diagnosis Gallstone pancreatitis Labs/Diagnostic Data: Laboratory Results Test 07/13/25 02:32 07/12/25 23:26 07/12/25 21:31 07/12/25 21:25 White Blood Count 16.0 10^3/uL (4.4-10.8) Red Blood Count 4.92 10^6/uL (4.0-5.20) Hemoglobin 13.5 g/dL (12.2-16.2) Hematocrit 40.9 % (36.0-46.0) Mean Corpuscular Volume 83.1 fL (80.0-100.0) Mean Corpuscular Hemoglobin 27.4 pg (28.0-32.0) Mean Corpuscular Hemoglobin Concent 32.9 g/dL (32.0-36.0) Red Cell Distribution Width 15.0 % (11.8-14.3) Platelet Count 316 10^3/uL (140-450) Mean Platelet Volume 9.1 fL (6.9-10.8) Neutrophils (%) (Auto) 86.2 % (37.0-80.0) Lymphocytes (%) (Auto) 8.8 % (10.0-50.0) Monocytes (%) (Auto) 4.9 % (0.0-12.0) Eosinophils (%) (Auto) 0.0 % (0.0-7.0) Basophils (%) (Auto) 0.1 % (0.0-2.0) Neutrophils # (Auto) 13.8 10 ^3/uL (1.6-8.6) Lymphocytes # (Auto) 1.4 10 ^3/uL (0.4-5.4) Monocytes # (Auto) 0.8 10 ^3/uL (0-1.3) Eosinophils # (Auto) 0 10 ^3/uL (0-0.8) Basophils # (Auto) 0 10 ^3/uL (0-0.2) Nucleated Red Blood Cells 0.0 % Sodium Level 138 mmol/L (136-145) Potassium Level 4.0 mmol/L (3.5-5.1) Chloride Level 104 mmol/L (98-107) Carbon Dioxide Level 22 mmol/L (20-31) Anion Gap 12 (5-15) Blood Urea Nitrogen 8 mg/dL (9-23) Creatinine 0.72 mg/dL (0.550-1.02) Glomerular Filtration Rate Calc 106 mL/min (>90) BUN/Creatinine Ratio 11.1 (10.0-20.0) Serum Glucose 340 mg/dL (74-106) Calcium Level 8.8 mg/dL (8.7-10.4) Total Bilirubin 1.5 mg/dL (0.2-1.0) Aspartate Amino Transferase (AST) 355 U/L (13-40) Alanine Aminotransferase (ALT) 308 U/L (7-40) Alkaline Phosphatase 272 U/L (46-116) Total Protein 7.4 g/dL (5.7-8.2) Albumin 4.3 g/dL (3.2-4.8) Lactic Acid Level 1.9 mmol/L (0.4-2.0) Ammonia < 10 umol/L (11-32) Prothrombin Time 10.7 sec (9.3-11.8) Prothrombin Time INR 1.01 (0.9-1.15) Activated Partial Thromboplast Time 24.2 SEC (24.5-34.5) Test 07/12/25 20:47 07/12/25 18:55 07/12/25 18:37 POC Glucose 464 mg/dl (70-106) Urine Color Dark-yellow (Yellow) Urine Clarity Clear (Clear) Urine pH 5.5 (5.0-9.0) Urine Specific [place] 1.028 (1.001-1.035) Urine Protein Negative (Negative) Urine Ketones 2+ (Negative) Urine Blood Negative /uL (Negative) Urine Nitrite 1+ (Negative) Urine Bilirubin Negative (Negative) Urine Urobilinogen Normal mg/dL (Negative) Urine Leukocyte Esterase Negative /uL (Negative) Urine RBC 3 /hpf (0 - 4) Urine Microscopic WBC 8 /HPF (0-5) Urine Squamous Epithelial Cells Few /hpf (<5) Urine Bacteria None seen /hpf (None Seen) Urine Yeast (Budding) Occasional /hpf (None Urine Glucose 4+ mg/dL (Normal) Urine Test Negative (Negative) Urine Opiates Screen Neg (NEGATIVE) Urine Fentanyl Screen Neg (NEGATIVE) Urine Barbiturates Screen Neg (NEGATIVE) Urine Phencyclidine Screen Neg (NEGATIVE) Urine Amphetamines Screen Neg (NEGATIVE) Urine Benzodiazepines Screen Neg (NEGATIVE) Urine Cocaine Screen Neg (NEGATIVE) Urine Cannabinoids Screen Neg (NEGATIVE) Hemoglobin A1c 12.0 % A1C (<5.7) Phosphorus Level 4.4 mg/dL (2.4-5.1) Magnesium Level 2.0 mg/dL (1.6-2.6) Triglycerides Level 234 mg/dL (< 150) Cholesterol Level 191 mg/dL (< 200) LDL Cholesterol 97 mg/dL (< 100) HDL Cholesterol 62 mg/dL (40-59) Lipase > 3500 U/L (12-53) Vitamin D 25-Hydroxy 40.7 ng/mL (30.0-100) Thyroid Stimulating Hormone (TSH) 0.77 uIU/mL (0.55-4.78) Other Laboratory Tests 07/13/25 02:32 Brief Hx & Hospital Course: Ms. Jimenez is a 45 year old female with PMHx of Gallstone pancreatitis, who presents today for chief complaint of abdominal pain. the patient refers sudden onset of sharp epigastric pain approximately at 4:00 a.m., which radiates to right upper quadrant, 10/10 intensity, associated with nausea and vomiting, without aggravating or relieving factors. She denies diarrhea, fever, chest pain, chills, diaphoresis, bloody vomitus, and other symptoms. The patient was previously admitted at this institution for pancreatitis in November 2024, at that point in time she was discharged with instructions to follow up with General surgery, which she states she was unable to. Due to persistence of symptoms and inability to keep down any food or liquid, the patient sought medical attention at the emergency department. On evaluation in the ED, the patient was in mild distress, vitals were stable. Initial labs show leukocytosis with neutrophilia, mild hyponatremia, lipase >3500, total bilirubin 2.7, AST 503. ALT 321, ALP 299, and hyperglycemia. UA significant for UTI. UDS negative. Gallbladder ultrasound shows cholelithiasis without sonographic evidence of acute cholecystitis. Abdominal CT shows acute pancreatitis with no complications seen. The patient was placed on NPO, started on IV fluids, IV pain medication, and IV antibiotics. She was admitted for further workup and management. Past medical history: Gallstone pancreatitis in November 2024 Past surgical history: Denies Allergies: Denies Social: Denies drug, alcohol, and tobacco use. States she lives with her and feels safe. Review of Systems Review of Systems Review of Systems Constitutional: Denies weight loss, fever and chills. HEENT: Denies changes in vision and hearing. Respiratory: Denies shortness of breath and cough Cardiovascular: Denies chest discomfort or palpitations GI: Refers epigastric abdominal pain, nausea, and vomiting Denies abdominal distention, diarrhea : Denies dysuria and urinary frequency. Musculoskeletal: Denies pain Skin: Denies rash and pruritus. Neurological: denies dizziness headache vision or hearing problems Allergies: Coded Allergies: NO KNOWN ALLERGIES (Unverified , 12/27/24) Medications Current Medications Medications Dose Ordered Sig/[place] Route Start Time Stop Time Status Last Admin Dose Admin Pantoprazole Sodium 40 mg DAILY IV 07/13/25 10:00 Ondansetron HCl 4 mg Q4HPRN PRN IV 07/12/25 21:00 Sodium Chloride 1,000 ml @ 75 mls/hr [id number] IV 07/12/25 22:30 Ceftriaxone Sodium 50 ml @ 100 mls/hr DAILY@09 IV 07/13/25 09:00 Ketorolac Tromethamine 15 mg Q6HPRN PRN IV 07/12/25 22:30 07/17/25 22:29 Diagnostic Test (Pha) 1 strip ACHS 07/13/25 07:00 Insulin Human Regular HS SC 07/13/25 22:00 Insulin Human Regular AC SC 07/13/25 07:00 Dextrose 50 ml UD PRN IV 07/12/25 22:30 Exam Exam Vital Signs Vital Signs Date Time Temp Pulse Resp B/P (MAP) Pulse Ox O2 Delivery O2 Flow Rate FiO2 07/12/25 21:30 94 18 100/55 07/12/25 21:06 98.4 96 98.4 07/12/25 21:06 Room Air* 0 21 Exam General: The patient alert and oriented in person place and time. Patient following commands HEENT: Normocephalic, atraumatic, normal reactive pupils, EOM intact, pink conjunctiva, pink dry mucous membrane Respiratory/pulmonary: Bilateral chest expansion, no pain on palpation of chest wall, clear lungs bilaterally, vesicular murmurs present in almost all lung nicolas, no associated crackles or wheezes. Cardiovascular: Normal RRR, normal S1 and S2, no murmurs Abdomen: Obese, Abdomen nondistended, normal bowel sounds, soft, pain on palpation of epigastrium, no palpable masses. Extremities: No deformities, there is no peripheral edema present at the lower extremities, normal pulses Skin: No rashes or pruritus, there is no sacral edema present at this time. Neurological: Intact cranial nerves with no focal neurologic deficits Labs/Xrays Labs/Xrays Labs Test 07/12/25 23:26 07/12/25 21:31 07/12/25 21:25 07/12/25 20:47 Range/Units Lactic Acid Level 1.9 0.4-2.0 mmol/L Ammonia < 10 L 11-32 umol/L Prothrombin Time 10.7 9.3-11.8 sec Prothrombin Time INR 1.01 0.9-1.15 Activated Partial Thromboplast Time 24.2 L 24.5-34.5 SEC POC Glucose 464 *H 70-106 mg/dl Test 07/12/25 18:55 07/12/25 18:37 Range/Units Urine Color Dark-yellow Yellow Urine Clarity Clear Clear Urine pH 5.5 5.0-9.0 Urine Specific [place] 1.028 1.001-1.035 Urine Protein Negative Negative Urine Ketones 2+ H Negative Urine Blood Negative Negative /uL Urine Nitrite 1+ H Negative Urine Bilirubin Negative Negative Urine Urobilinogen Normal Negative mg/dL Urine Leukocyte Esterase Negative Negative /uL Urine RBC 3 0 - 4 /hpf Urine Microscopic WBC 8 H 0-5 /HPF Urine Squamous Epithelial Cells Few <5 /hpf Urine Bacteria None seen None Seen /hpf Urine Yeast (Budding) Occasional None Seen /hpf Urine Glucose 4+ H Normal mg/dL Urine Test Negative Negative Urine Opiates Screen Neg NEGATIVE Urine Fentanyl Screen Neg NEGATIVE Urine Barbiturates Screen Neg NEGATIVE Urine Phencyclidine Screen Neg NEGATIVE Urine Amphetamines Screen Neg NEGATIVE Urine Benzodiazepines Screen Neg NEGATIVE Urine Cocaine Screen Neg NEGATIVE Urine Cannabinoids Screen Neg NEGATIVE White Blood Count 14.9 H 4.4-10.8 10^3/uL Red Blood Count 5.19 4.0-5.20 10^6/uL Hemoglobin 14.0 12.2-16.2 g/dL Hematocrit 43.6 36.0-46.0 % Mean Corpuscular Volume 84.2 80.0-100.0 fL Mean Corpuscular Hemoglobin 27.0 L 28.0-32.0 pg Mean Corpuscular Hemoglobin Concent 32.1 32.0-36.0 g/dL Red Cell Distribution Width 15.0 H 11.8-14.3 % Platelet Count 335 140-450 10^3/uL Mean Platelet Volume 8.9 6.9-10.8 fL Neutrophils (%) (Auto) 90.7 H 37.0-80.0 % Lymphocytes (%) (Auto) 6.3 L 10.0-50.0 % Monocytes (%) (Auto) 2.9 0.0-12.0 % Eosinophils (%) (Auto) 0.0 0.0-7.0 % Basophils (%) (Auto) 0.1 0.0-2.0 % Neutrophils # (Auto) 13.5 H 1.6-8.6 10 ^3/uL Lymphocytes # (Auto) 0.9 0.4-5.4 10 ^3/uL Monocytes # (Auto) 0.4 0-1.3 10 ^3/uL Eosinophils # (Auto) 0 0-0.8 10 ^3/uL Basophils # (Auto) 0 0-0.2 10 ^3/uL Nucleated Red Blood Cells 0.0 % Sodium Level 134 L 136-145 mmol/L Potassium Level 4.0 3.5-5.1 mmol/L Chloride Level 99 98-107 mmol/L Carbon Dioxide Level 21 20-31 mmol/L Anion Gap 14 5-15 Blood Urea Nitrogen 11 9-23 mg/dL Creatinine 0.83 0.550-1.02 mg/dL Glomerular Filtration Rate Calc 89 >90 mL/min BUN/Creatinine Ratio 13.3 10.0-20.0 Serum Glucose 466 *H 74-106 mg/dL Hemoglobin A1c 12.0 H <5.7 % A1C Calcium Level 9.6 8.7-10.4 mg/dL Phosphorus Level 4.4 2.4-5.1 mg/dL Magnesium Level 2.0 1.6-2.6 mg/dL Total Bilirubin 2.7 H 0.2-1.0 mg/dL Aspartate Amino Transferase (AST) 503 H 13-40 U/L Alanine Aminotransferase (ALT) 321 H 7-40 U/L Alkaline Phosphatase 299 H 46-116 U/L Total Protein 7.4 5.7-8.2 g/dL Albumin 4.5 3.2-4.8 g/dL Triglycerides Level 234 H < 150 mg/dL Cholesterol Level 191 < 200 mg/dL LDL Cholesterol 97 < 100 mg/dL HDL Cholesterol 62 H 40-59 mg/dL Lipase > 3500 H 12-53 U/L Thyroid Stimulating Hormone (TSH) 0.77 0.55-4.78 uIU/mL SEPSIS SEPSIS Sepsis Screen Date sepsis recognized/suspect: Jul 12, 2025 Time Sepsis recognized/suspect: 2105 Recent Procedure: No On Antibiotic Therapy: No Respiratory Rate >20: No Heart Rate >90: Yes Temp<36 C (96.8 F) or >38.3 C: No SBP <90 or MAP <65 mmHG: No New Acute Mental Status Change: No Is the patient on CPAP, BIPAP,: No Physician Orders Gallbladder (07/12/25 18:34) Vitamin D, 25-Hydroxy (07/12/25 20:47) Vitamin B12 (07/12/25 20:47) Blood Culture (07/12/25 20:47) Urine Bacterial Culture (07/12/25 20:47) Respiratory Culture W/ Gs (07/12/25 20:47) Chest Xray 1 View (07/12/25 20:47) Pantoprazole (Protonix) (07/13/25 10:00) Ondansetron Hcl (Zofran) (07/12/25 21:00) Ct Ab Pel Wo Con-No Oral Or Iv (07/12/25 20:47) Sodium Chloride 0.9% (07/12/25 22:30) Ceftriaxone 1gm/50ml (Rocephin) (07/13/25 09:00) Ketorolac Injection (Toradol Injection) (07/12/25 22:30) Glucose Blood (Accu-Chek Comfort Curve T (07/13/25 07:00) Insulin R (Human) (Insulin R) (07/13/25 22:00) Insulin R (Human) (Insulin R) (07/13/25 07:00) Dextrose 50% Syringe (07/12/25 22:30) Admit (07/13/25 00:05) Allergies (07/13/25 00:05) Code Status (07/13/25 00:05) Npo (Nothing By Mouth) Diet (07/13/25 Breakfast) Condition: Stable (07/13/25 00:05) Oxygen By Nasal Cannula (07/13/25 00:05) Stat Ekg For Chest Pain (07/13/25 00:05) Notify Of Changes From Base (07/13/25 00:05) Emergency Dysrhythmia Protocol (07/13/25 00:05) Rhythm Strips Once Every Shift (07/13/25 00:05) Vital Signs Date Time Temp Pulse Resp B/P (MAP) Pulse Ox O2 Delivery O2 Flow Rate FiO2 07/12/25 21:30 94 18 100/55 07/12/25 21:06 98.4 102 19 138/72 (94) 96 98.4 07/12/25 21:06 102 19 96 Room Air* 0 21 07/12/25 21:02 102 19 138/72 07/12/25 17:37 97.8 94 15 128/97 98 97.8 Laboratory Tests Test 07/12/25 18:37 07/12/25 21:31 07/12/25 23:26 White Blood Count 14.9 10^3/uL (4.4-10.8) H Lactic Acid Level 2.1 mmol/L (0.4-2.0) *H 1.9 mmol/L (0.4-2.0) Medications Medications Dose Ordered Sig/[place] Route Start Time Stop Time Status Last Admin Dose Admin Dicyclomine HCl 20 mg ONCE ONCE IM 07/12/25 18:45 07/12/25 18:46 DC 07/12/25 20:53 20 MG Hydromorphone HCl 1 mg ONCE ONCE IV 07/12/25 20:45 07/12/25 20:46 DC 07/12/25 21:02 1 MG Insulin Human Regular 5 units ONCE ONCE SC 07/12/25 20:00 07/12/25 20:01 DC 07/12/25 20:54 5 UNITS Ondansetron HCl 8 mg ONCE ONCE PO 07/12/25 18:45 07/12/25 18:46 DC 07/12/25 20:52 8 MG Pantoprazole Sodium 40 mg ONCE ONCE IV 07/12/25 21:00 07/12/25 21:06 DC 07/12/25 21:31 40 MG Sodium Chloride 1,000 ml @ 1,000 mls/hr Q1H ONCE IV 07/12/25 20:00 07/12/25 20:59 DC 07/12/25 20:59 1,000 MLS/HR Assessment/Plan Assessment/Plan Assessment/Plan Assessment and Plan: Sepsis secondary to Acute Pancreatitis, Lipase > 3500 Intractable nausea and vomiting secondary to above - Abdominal CT: Acute pancreatitis with no complications seen on unenhanced CT - NS 1000 cc IV bolus x2 - NS maintenance 75 cc/hour IV - Zofran 8 mg p.o. once - Zofran 4 mg IV q.4 hours PRN - Dilaudid 1 mg IV once - [place] 10/325 mg tablet p.o. once - Toradol 50 mg IV q.6 hours PRN - NPO - Blood cultures have been ordered Possible choledocholithiasis R/o Cholangitis - MRCP per primary team. - Monitor LFTs - Ceftriaxone 1 g IV daily - Metronidazole 500 mg IV q.8 hours Cholelithiasis - Gallbladder ultrasound: Cholelithiasis without sonographic evidence of acute cholecystitis Mild hyponatremia, likely hypovolemic - Monitor Sodium Acute Cystitis without hematuria - Ceftriaxone 1 g IV daily - Urine culture has been ordered Uncontrolled Type 2 Diabetes Mellitus with Hyperglycemia, HbA1c 12 - Moderate SSI - Accu-cheks - Consistent Carbohydrate diet once NPO is lifted Hypertriglyceridemia Obesity, BMI 32.2 kg/m2 - I have counseled the patient on healthy lifestyle modifications. Diet: NPO DVT prophylaxis: Patient is ambulatory GI prophylaxis: Protonix 40 mg IV daily Discharge Instruct/Medications Scheduled Atorvastatin Calcium (Lipitor), 1 TAB PO DAILY Discharge Statement: "Patient was advised to return to the ER or call 911 if any headaches, dizziness, shortness of breath, chest pain, abdominal pain, bleeding, fevers, or worsening of medical condition. Patient was counseled about treatment plan, medications, possible side effects, patientverbalized understanding. All questions were answered to the best of my ability. This discharge took greater then 30 minutes in planning, reviewing documentation, counseling the patient, and discussing with other team members." ASSESSMENT ASSESSMENT Assessment DHRUV MAYER RESIDENT Jul 13, 2025 10:13
[2025-07-13] MEDS: PANTOPRAZOLE 40 MG/10 ML VIAL INJ IV SCH (11:50)
[2025-07-13 12:17] VITALS: PULSE 86; RESP 18
[2025-07-13 13:00] VITALS: BP 104/57; PULSE 70; RESP 16; TEMP 98.5; O2SAT 100; O2SAT 70
[2025-07-13] MEDS: PIPERACILLIN-TAZOB 3.375GM 100 ML IV SCH (14:26)
[2025-07-13 17:00] VITALS: BP 108/56; PULSE 87; RESP 16; TEMP 98.6; O2SAT 98
--- NOTE | 2025-07-13 18:53 | DVHPNRES ---
Progress Note Date Seen: Jul 13, 2025 Resident Creating Document: DHRUV MAYER RESIDENT Medical Necessity Reason Pt with a Central, PICC or Fol: No Subjective Review of Systems Ms. Jimenez is a 45 year old female with PMHx of Gallstone pancreatitis, who presents today for chief complaint of abdominal pain. the patient refers sudden onset of sharp epigastric pain approximately at 4:00 a.m., which radiates to right upper quadrant, 10/10 intensity, associated with nausea and vomiting, without aggravating or relieving factors. She denies diarrhea, fever, chest pain, chills, diaphoresis, bloody vomitus, and other symptoms. The patient was previously admitted at this institution for pancreatitis in November 2024, at that point in time she was discharged with instructions to follow up with General surgery, which she states she was unable to. Due to persistence of symptoms and inability to keep down any food or liquid, the patient sought medical attention at the emergency department. On evaluation in the ED, the patient was in mild distress, vitals were stable. Initial labs show leukocytosis with neutrophilia, mild hyponatremia, lipase >3500, total bilirubin 2.7, AST 503. ALT 321, ALP 299, and hyperglycemia. UA significant for UTI. UDS negative. Gallbladder ultrasound shows cholelithiasis without sonographic evidence of acute cholecystitis. Abdominal CT shows acute pancreatitis with no complications seen. The patient was placed on NPO, started on IV fluids, IV pain medication, and IV antibiotics. She was admitted for further workup and management. Past medical history: Gallstone pancreatitis in November 2024 Past surgical history: Denies Allergies: Denies Social: Denies drug, alcohol, and tobacco use. States she lives with her and feels safe. The patient was seen and examined at bedside. Overnight events were reviewed. The patient reports having 9/10 abdominal pain with no other complaints reported. Objective vital signs Vital Sign Date Time Temp Pulse Resp B/P (MAP) Pulse Ox O2 Delivery O2 Flow Rate FiO2 07/13/25 17:00 98.6 87 16 108/56 (73) 98 98.6 07/12/25 21:06 Room Air* 0 21 Total Intake and Output 07/12/25 07/12/25 07/13/25 15:00 23:00 07:00 Intake Total 1000 ml 1000 ml Balance 1000 ml 1000 ml medications Current Medications Medications Dose Ordered Sig/[place] Route Start Time Stop Time Status Last Admin Dose Admin Pantoprazole Sodium 40 mg DAILY IV 07/13/25 10:00 07/13/25 11:50 40 MG Ondansetron HCl 4 mg Q4HPRN PRN IV 07/12/25 21:00 Ketorolac Tromethamine 15 mg Q6HPRN PRN IV 07/12/25 22:30 07/17/25 22:29 Diagnostic Test (Pha) 1 strip ACHS 07/13/25 07:00 07/13/25 17:00 1 STRIP Insulin Human Regular HS SC 07/13/25 22:00 Insulin Human Regular AC SC 07/13/25 07:00 07/13/25 17:30 6 UNITS Dextrose 50 ml UD PRN IV 07/12/25 22:30 Sodium Chloride 1,000 ml @ 100 mls/hr Q10H IV 07/13/25 12:15 07/13/25 12:15 100 MLS/HR Piperacillin Sod/ Tazobactam Sod 100 ml @ 25 mls/hr Q8HR IV 07/13/25 14:00 07/13/25 14:26 25 MLS/HR Examination Pt is lying on bed General Appearance: Alert, Oriented X3, Cooperative, Mild distress HEENT: Atraumatic, Mucous membranes moist/pink Respiratory: Clear to auscultation, Normal air movement, No added sounds Cardiovascular: Regular rate, Normal S1, Normal S2, No murmurs Abdominal/ : Active bowel sounds, Soft, no distention, right upper quadrant and epigastric tenderness, Chen sign positive Extremities: No edema, Normal pulses, No tenderness/swelling Skin: No Significant rash, except past surgical scars Neuro: Normal speech, sensorimotor deficits none Psych/Mental Status: Mental status NL, Mood NL Nurse was there as hogshead hooper during examination laboratory and microbiology Laboratory Tests 07/13/25 02:32 Test 07/13/25 02:32 Range/Units Serum Glucose 340 H 74-106 mg/dL Microbiology Date/Time Source Procedure Growth Status 07/12/25 18:55 Voided Urine Urine Culture - Preliminary Resulted Labs and/or images reviewed: Labs reviewed by me, Image(s) reviewed by me Problem List/Assessment/Plan Problem List/Assessment/Plan Sepsis secondary to Acute Pancreatitis, Lipase > 3500 Intractable nausea and vomiting secondary to above - Abdominal CT: Acute pancreatitis with no complications seen on unenhanced CT - NS 1000 cc IV bolus x2 - NS maintenance 75 cc/hour IV - Zofran 8 mg p.o. once - Zofran 4 mg IV q.4 hours PRN - Dilaudid 1 mg IV once - [place] 10/325 mg tablet p.o. once - Toradol 50 mg IV q.6 hours PRN - NPO - Blood cultures have been ordered Ruled out cholangitis and choledocholithiasis - MRCP: Cholelithiasis.Mildly dilated common bile duct. No filling defect or stricture identified in the common bile duct. No obstructing gallstone visualized.Findings consistent with acute pancreatitis - Monitor LFTs - Ceftriaxone 1 g IV daily discontinued - Metronidazole 500 mg IV q.8 hours discontinued -Zosyn started Cholelithiasis - Gallbladder ultrasound: Cholelithiasis without sonographic evidence of acute cholecystitis Mild hyponatremia, likely hypovolemic - Monitor Sodium Acute Cystitis without hematuria - Ceftriaxone 1 g IV daily discontinued and Zosyn started. - Urine culture has been ordered Uncontrolled Type 2 Diabetes Mellitus with Hyperglycemia, HbA1c 12 - Moderate SSI - Accu-cheks - Consistent Carbohydrate diet once NPO is lifted Hypertriglyceridemia Obesity, BMI 32.2 kg/m2 - I have counseled the patient on healthy lifestyle modifications. Diet: NPO DVT prophylaxis: Patient is ambulatory GI prophylaxis: Protonix 40 mg IV daily Plan discussed with: Patient, Other My Orders My Orders Orders - DHRUV MAYER Procedure Category Date Status Time Sodium Chloride 0.9% PHA 07/13/25 In Process 12:15 Piperacillin-Tazob PHA 07/13/25 In Process 3.375gm (Zosyn 3.375g 14:00 Date of Service: Jul 13, 2025 Billing Provider: SAMIRA BURDICK MD Common Visit Codes: NOT BILLABLE DHRUV MAYER Jul 13, 2025 18:53 SAMIRA BURDICK MD Jul 13, 2025 22:39
[2025-07-13 20:00] VITALS: PULSE 84; RESP 18; O2SAT 97
[2025-07-13 21:00] VITALS: BP 105/60; PULSE 81; RESP 20; TEMP 98; O2SAT 99
--- NOTE | 2025-07-13 22:18 | DVHINCON2 ---
Date of service: Jul 13, [address] Park Reason for Consultation Gallstone pancreatitis History of Present Illness Ms. Jimenez is a 45 year old female with PMHx of Gallstone pancreatitis in November 2024, who presents today for chief complaint of abdominal pain. the patient refers sudden onset of sharp epigastric pain approximately at 4:00 a.m., which radiates to right upper quadrant, 10/10 intensity, associated with nausea and vomiting, without aggravating or relieving factors. She denies diarrhea, fever, chest pain, chills, diaphoresis, bloody vomitus, and other symptoms. Due to persistence of symptoms and inability to keep down any food or liquid, the p atient sought medical attention at the emergency department. On evaluation in the ED, the patient was in mild distress, vitals were stable. Initial labs show leukocytosis with neutrophilia, mild hyponatremia, lipase >3500, total bilirubin 2.7, AST 503. ALT 321, ALP 299, and hyperglycemia. UA significant for UTI. UDS negative. Gallbladder ultrasound shows cholelithiasis without sonographic evidence of acute cholecystitis. Abdominal CT shows acute pancreatitis with no complications seen. The patient was placed on NPO, started on IV fluids, IV pain medication, and IV antibiotics. She was admitted for further workup and management. Family History: Patient reports no known family medical history. Allergies: Coded Allergies: NO KNOWN ALLERGIES (Unverified , 12/27/24) Home Meds Active Scripts Atorvastatin Calcium (Lipitor) 40 Mg Tab, 1 TAB PO DAILY, #30 TAB 5 Refills Prov:LENNIE ROMANO MD 12/30/24 Current Medications Current Medications Medications (Trade) Dose Ordered Sig/[place]ville Route PRN Reason Start Time Stop Time Status Last Admin Pantoprazole Sodium (Protonix) 40 mg DAILY IV 07/13/25 10:00 07/13/25 11:50 Sodium Chloride 1,000 ml @ 75 mls/hr [id number] IV 07/12/25 22:30 07/13/25 12:05 DC Ceftriaxone Sodium 50 ml @ 100 mls/hr DAILY@09 IV 07/13/25 09:00 07/13/25 05:22 DC Ketorolac Tromethamine (Toradol Injection) 15 mg Q6HPRN PRN IV MILD PAIN (1-3 PAIN SCALE) 07/12/25 22:30 07/17/25 22:29 Diagnostic Test (Pha) (Accu-Chek Comfort Curve T) 1 strip ACHS 07/13/25 07:00 07/13/25 17:00 Insulin Human Regular (InsuLIN R) HS SC 07/13/25 22:00 Insulin Human Regular (InsuLIN R) AC SC 07/13/25 07:00 07/13/25 17:30 Dextrose 50 ml UD PRN IV Blood Sugar LESS THAN 60 07/12/25 22:30 Metronidazole 100 ml @ 100 mls/hr Q8HR IV 07/13/25 06:00 07/13/25 05:22 DC Ceftriaxone Sodium 50 ml @ 100 mls/hr DAILY@09 IV 07/13/25 05:30 07/13/25 12:05 DC 07/13/25 08:19 Metronidazole 100 ml @ 100 mls/hr Q8HR IV 07/13/25 05:30 07/13/25 12:05 DC Sodium Chloride 1,000 ml @ 100 mls/hr Q10H IV 07/13/25 12:15 07/13/25 12:15 Piperacillin Sod/ Tazobactam Sod 100 ml @ 25 mls/hr Q8HR IV 07/13/25 14:00 07/13/25 21:26 Vital Signs Vital Signs Date Time Temp Pulse Resp B/P (MAP) Pulse Ox O2 Delivery O2 Flow Rate FiO2 07/13/25 17:00 98.6 87 16 108/56 (73) 98 98.6 07/12/25 21:06 Room Air* 0 21 Physical Exam General Appearance: Alert, Oriented X3, Cooperative, Mild distress HEENT: Atraumatic, Mucous membranes moist/pink Respiratory: Clear to auscultation, Normal air movement, No added sounds Cardiovascular: Regular rate, Normal S1, Normal S2, No murmurs Abdominal/ : Active bowel sounds, Soft, no distention, right upper quadrant and epigastric tenderness, Chen sign positive Extremities: No edema, Normal pulses, No tenderness/swelling Skin: No Significant rash, except past surgical scars Neuro: Normal speech, sensorimotor deficits none Psych/Mental Status: Mental status NL, Mood NL Nurse was there as catapult and arresting gear officer during examination Labs/Diagnostic Data Labs Test 07/13/25 17:24 07/13/25 02:32 07/12/25 23:26 10/12/25 21:31 Range/Units POC Glucose 225 H 70-106 mg/dl White Blood Count 16.0 H 4.4-10.8 10^3/uL Red Blood Count 4.92 4.0-5.20 10^6/uL Hemoglobin 13.5 12.2-16.2 g/dL Hematocrit 40.9 36.0-46.0 % Mean Corpuscular Volume 83.1 80.0-100.0 fL Mean Corpuscular Hemoglobin 27.4 L 28.0-32.0 pg Mean Corpuscular Hemoglobin Concent 32.9 32.0-36.0 g/dL Red Cell Distribution Width 15.0 H 11.8-14.3 % Platelet Count 316 140-450 10^3/uL Mean Platelet Volume 9.1 6.9-10.8 fL Neutrophils (%) (Auto) 86.2 H 37.0-80.0 % Lymphocytes (%) (Auto) 8.8 L 10.0-50.0 % Monocytes (%) (Auto) 4.9 0.0-12.0 % Eosinophils (%) (Auto) 0.0 0.0-7.0 % Basophils (%) (Auto) 0.1 0.0-2.0 % Neutrophils # (Auto) 13.8 H 1.6-8.6 10 ^3/uL Lymphocytes # (Auto) 1.4 0.4-5.4 10 ^3/uL Monocytes # (Auto) 0.8 0-1.3 10 ^3/uL Eosinophils # (Auto) 0 0-0.8 10 ^3/uL Basophils # (Auto) 0 0-0.2 10 ^3/uL Nucleated Red Blood Cells 0.0 % Sodium Level 138 136-145 mmol/L Potassium Level 4.0 3.5-5.1 mmol/L Chloride Level 104 98-107 mmol/L Carbon Dioxide Level 22 20-31 mmol/L Anion Gap 12 5-15 Blood Urea Nitrogen 8 L 9-23 mg/dL Creatinine 0.72 0.550-1.02 mg/dL Glomerular Filtration Rate Calc 106 >90 mL/min BUN/Creatinine Ratio 11.1 10.0-20.0 Serum Glucose 340 H 74-106 mg/dL Calcium Level 8.8 8.7-10.4 mg/dL Total Bilirubin 1.5 H 0.2-1.0 mg/dL Aspartate Amino Transferase (AST) 355 H 13-40 U/L Alanine Aminotransferase (ALT) 308 H 7-40 U/L Alkaline Phosphatase 272 H 46-116 U/L Total Protein 7.4 5.7-8.2 g/dL Albumin 4.3 3.2-4.8 g/dL Lactic Acid Level 1.9 0.4-2.0 mmol/L Ammonia < 10 L 11-32 umol/L Test 07/12/25 21:25 07/12/25 18:55 07/12/25 18:37 Range/Units Prothrombin Time 10.7 9.3-11.8 sec Prothrombin Time INR 1.01 0.9-1.15 Activated Partial Thromboplast Time 24.2 L 24.5-34.5 SEC Urine Color Dark-yellow Yellow Urine Clarity Clear Clear Urine pH 5.5 5.0-9.0 Urine Specific [place] 1.028 1.001-1.035 Urine Protein Negative Negative Urine Ketones 2+ H Negative Urine Blood Negative Negative /uL Urine Nitrite 1+ H Negative Urine Bilirubin Negative Negative Urine Urobilinogen Normal Negative mg/dL Urine Leukocyte Esterase Negative Negative /uL Urine RBC 3 0 - 4 /hpf Urine Microscopic WBC 8 H 0-5 /HPF Urine Squamous Epithelial Cells Few <5 /hpf Urine Bacteria None seen None Seen /hpf Urine Yeast (Budding) Occasional None Seen /hpf Urine Glucose 4+ H Normal mg/dL Urine Test Negative Negative Urine Opiates Screen Neg NEGATIVE Urine Fentanyl Screen Neg NEGATIVE Urine Barbiturates Screen Neg NEGATIVE Urine Phencyclidine Screen Neg NEGATIVE Urine Amphetamines Screen Neg NEGATIVE Urine Benzodiazepines Screen Neg NEGATIVE Urine Cocaine Screen Neg NEGATIVE Urine Cannabinoids Screen Neg NEGATIVE Hemoglobin A1c 12.0 H <5.7 % A1C Phosphorus Level 4.4 2.4-5.1 mg/dL Magnesium Level 2.0 1.6-2.6 mg/dL Triglycerides Level 234 H < 150 mg/dL Cholesterol Level 191 < 200 mg/dL LDL Cholesterol 97 < 100 mg/dL HDL Cholesterol 62 H 40-59 mg/dL Lipase > 3500 H 12-53 U/L Vitamin B12 Level 1493 H 211-911 pg/mL Vitamin D 25-Hydroxy 40.7 30.0-100 ng/mL Thyroid Stimulating Hormone (TSH) 0.77 0.55-4.78 uIU/mL Microbiology Date/Time Source Procedure Growth Status 07/12/25 21:31 Blood Blood Culture - Preliminary NO GROWTH AFTER 24 HOURS OF INCUBATION. Resulted 07/12/25 18:55 Voided Urine Urine Culture - Preliminary Resulted MRCP IMPRESSION: 1. Cholelithiasis. 2. Mildly dilated common bile duct. No filling defect or stricture identified in the common bile duct. No obstructing gallstone visualized. 3. Findings consistent with acute pancreatitis. Problems(with codes): (1) Gallstone pancreatitis (2) Elevated liver enzymes (3) Hepatic steatosis (4) Type 2 diabetes mellitus with hyperglycemia (5) Acute pancreatitis (6) Hepatomegaly Plan/Recommendation Plan Patient is getting IV fluid hydration, IV pain control Broad-spectrum antibiotics IV PPI Continue to monitor labs Surgical consult pending Possible elective cholecystectomy once acute pancreatitis results Plan discussed with: Other (Dr Macario) HEATHER DOS SANTOS MD Jul 13, 2025 22:18
[2025-07-13] MEDS: KETOROLAC TROMETH 30 MG/ML 1ML VIAL IV PRN (23:15)
[2025-07-14] VITALS (7 sets, daily range): BP systolic 92–118; BP diastolic 59–74; PULSE 72–86; RESP 16–18; TEMP 97.5–98.9; O2SAT 95–99
[2025-07-14 06:45] LABS: Hematocrit 34.2 % (36.0-46.0); Hemoglobin 11.4 g/dL (12.2-16.2); Mean Corpuscular Hemoglobin 27.2 pg (28.0-32.0); Mean Corpuscular Volume 82.0 fL (80.0-100.0); Nucleated Red Blood Cells % 0.1 %
[2025-07-14 06:58] LABS: Chloride 105 mmol/L (98-107); Potassium 3.5 mmol/L (3.5-5.1); Sodium 139 mmol/L (136-145)
[2025-07-14 06:59] LABS: Anion Gap 12 (5-15); Carbon Dioxide 22 mmol/L (20-31)
[2025-07-14 07:04] LABS: BUN/Creatinine Ratio 11.3 (10.0-20.0)
[2025-07-14 07:05] LABS: Blood Urea Nitrogen 8 mg/dL (9-23); Calcium 8.1 mg/dL (8.7-10.4); Glucose 192 mg/dL (74-106)
[2025-07-14 07:30] LABS: Total Protein 6.1 g/dL (5.7-8.2)
[2025-07-14 07:31] LABS: Albumin 3.6 g/dL (3.2-4.8); Bilirubin, Total 0.8 mg/dL (0.2-1.0)
[2025-07-14 07:34] LABS: Alanine Aminotransferase 163.0 U/L (7-40); Alkaline Phosphatase 174.0 U/L (46-116); Bilirubin, Direct 0.3 mg/dL (<0.3)
[2025-07-14] MEDS: INSULIN LANTUS (GLARGINE) 1 /0.01ml (100units/ml) SC SCH (10:17)
[2025-07-14] MEDS ORDERED: MORPHINE SULFATE INJ 2 MG/ml SYRG IV PRN (11:45)
--- NOTE | 2025-07-14 15:27 | DVHINCON2 ---
Date of service: Jul 14, 2025 Family History: Patient reports no known family medical history. Allergies: Coded Allergies: NO KNOWN ALLERGIES (Unverified , 12/27/24) Home Meds Active Scripts Atorvastatin Calcium (Lipitor) 40 Mg Tab, 1 TAB PO DAILY, #30 TAB 5 Refills Prov:LENNIE ROMANO MD 12/30/24 Current Medications Current Medications Medications (Trade) Dose Ordered Sig/[place]ville Route PRN Reason Start Time Stop Time Status Last Admin Insulin Human Regular (InsuLIN R) HS SC 07/13/25 22:00 07/13/25 23:34 Insulin Glargine (Lantus) 15 units DAILY@1000 SC 07/14/25 10:00 07/14/25 10:17 Morphine Sulfate 2 mg Q4HPRN PRN IV SEVERE PAIN (7-10 PAIN SCALE) 07/14/25 11:45 Vital Signs Vital Signs Date Time Temp Pulse Resp B/P (MAP) Pulse Ox O2 Delivery O2 Flow Rate FiO2 07/14/25 13:00 98.2 78 16 92/59 (70) 97 98.2 07/13/25 20:00 Room Air* 0 21 Labs/Diagnostic Data Labs Test 07/14/25 12:20 07/14/25 06:12 07/12/25 23:26 07/12/25 21:31 Range/Units POC Glucose 200 H 70-106 mg/dl White Blood Count 8.8 # 4.4-10.8 10^3/uL Red Blood Count 4.17 4.0-5.20 10^6/uL Hemoglobin 11.4 #L 12.2-16.2 g/dL Hematocrit 34.2 #L 36.0-46.0 % Mean Corpuscular Volume 82.0 80.0-100.0 fL Mean Corpuscular Hemoglobin 27.2 L 28.0-32.0 pg Mean Corpuscular Hemoglobin Concent 33.2 32.0-36.0 g/dL Red Cell Distribution Width 14.9 H 11.8-14.3 % Platelet Count 269 140-450 10^3/uL Mean Platelet Volume 8.8 6.9-10.8 fL Neutrophils (%) (Auto) 63.9 37.0-80.0 % Lymphocytes (%) (Auto) 27.4 10.0-50.0 % Monocytes (%) (Auto) 6.6 0.0-12.0 % Eosinophils (%) (Auto) 1.8 0.0-7.0 % Basophils (%) (Auto) 0.3 0.0-2.0 % Neutrophils # (Auto) 5.6 1.6-8.6 10 ^3/uL Lymphocytes # (Auto) 2.4 0.4-5.4 10 ^3/uL Monocytes # (Auto) 0.6 0-1.3 10 ^3/uL Eosinophils # (Auto) 0.2 0-0.8 10 ^3/uL Basophils # (Auto) 0 0-0.2 10 ^3/uL Nucleated Red Blood Cells 0.1 % Sodium Level 139 136-145 mmol/L Potassium Level 3.5 3.5-5.1 mmol/L Chloride Level 105 98-107 mmol/L Carbon Dioxide Level 22 20-31 mmol/L Anion Gap 12 5-15 Blood Urea Nitrogen 8 L 9-23 mg/dL Creatinine 0.71 0.550-1.02 mg/dL Glomerular Filtration Rate Calc 107 >90 mL/min BUN/Creatinine Ratio 11.3 10.0-20.0 Serum Glucose 192 H 74-106 mg/dL Calcium Level 8.1 L 8.7-10.4 mg/dL Total Bilirubin 0.8 0.2-1.0 mg/dL Direct Bilirubin 0.3 <0.3 mg/dL Aspartate Amino Transferase (AST) 88 H 13-40 U/L Alanine Aminotransferase (ALT) 163 H 7-40 U/L Alkaline Phosphatase 174 H 46-116 U/L Total Protein 6.1 5.7-8.2 g/dL Albumin 3.6 3.2-4.8 g/dL Lactic Acid Level 1.9 0.4-2.0 mmol/L Ammonia < 10 L 11-32 umol/L Test 07/12/25 21:25 07/12/25 18:55 07/12/25 18:37 Range/Units Prothrombin Time 10.7 9.3-11.8 sec Prothrombin Time INR 1.01 0.9-1.15 Activated Partial Thromboplast Time 24.2 L 24.5-34.5 SEC Urine Color Dark-yellow Yellow Urine Clarity Clear Clear Urine pH 5.5 5.0-9.0 Urine Specific [place] 1.028 1.001-1.035 Urine Protein Negative Negative Urine Ketones 2+ H Negative Urine Blood Negative Negative /uL Urine Nitrite 1+ H Negative Urine Bilirubin Negative Negative Urine Urobilinogen Normal Negative mg/dL Urine Leukocyte Esterase Negative Negative /uL Urine RBC 3 0 - 4 /hpf Urine Microscopic WBC 8 H 0-5 /HPF Urine Squamous Epithelial Cells Few <5 /hpf Urine Bacteria None seen None Seen /hpf Urine Yeast (Budding) Occasional None Seen /hpf Urine Glucose 4+ H Normal mg/dL Urine Test Negative Negative Urine Opiates Screen Neg NEGATIVE Urine Fentanyl Screen Neg NEGATIVE Urine Barbiturates Screen Neg NEGATIVE Urine Phencyclidine Screen Neg NEGATIVE Urine Amphetamines Screen Neg NEGATIVE Urine Benzodiazepines Screen Neg NEGATIVE Urine Cocaine Screen Neg NEGATIVE Urine Cannabinoids Screen Neg NEGATIVE Hemoglobin A1c 12.0 H <5.7 % A1C Phosphorus Level 4.4 2.4-5.1 mg/dL Magnesium Level 2.0 1.6-2.6 mg/dL Triglycerides Level 234 H < 150 mg/dL Cholesterol Level 191 < 200 mg/dL LDL Cholesterol 97 < 100 mg/dL HDL Cholesterol 62 H 40-59 mg/dL Lipase > 3500 H 12-53 U/L Vitamin B12 Level 1493 H 211-911 pg/mL Vitamin D 25-Hydroxy 40.7 30.0-100 ng/mL Thyroid Stimulating Hormone (TSH) 0.77 0.55-4.78 uIU/mL Microbiology Date/Time Source Procedure Growth Status 07/12/25 21:31 Blood Blood Culture - Preliminary NO GROWTH AFTER 24 HOURS OF INCUBATION. Resulted 07/12/25 18:55 Voided Urine Urine Culture - Preliminary Resulted Assessment [id number] C/O RUQ PAIN AFEBRILE VSS ABD SOFT NON TENDER RESOLVING PANCREATITIS ELEVATED LFT ELEVATED LIPASE MRCP NEG CBD STONE REPEAT LABS AM CONSIDER GB SURGERY BASED ON ONGOING EVAL Plan discussed with: Patient CAITLYN DOS SANTOS MD Jul 14, 2025 15:27
--- NOTE | 2025-07-14 15:37 | DVHINCON2 ---
DATE OF CONSULTATION: 07/14/2025 HISTORY OF PRESENT ILLNESS: This patient is 45 years old coming in with upper abdominal pain. No nausea or vomiting. No hematemesis or melena. No bleeding per rectum. Gallbladder shows presence of cholelithiasis and CT scan is showing evidence of acute pancreatitis with no complications. PAST MEDICAL HISTORY: No diabetes, hypertension. PAST SURGICAL HISTORY: Nothing significant. PHYSICAL EXAMINATION: VITAL SIGNS: Afebrile. Stable signs. HEENT: With no evidence of pallor, cyanosis, or jaundice. NECK: Supple and nontender, with no thyromegaly or lymphadenopathy. CHEST AND LUNGS: Clear. HEART: Within normal limits. ABDOMEN: Soft, minimally tender. No rebound. EXTREMITIES: Unremarkable. NEUROLOGIC: Intact. Liver enzymes were elevated. Her lipase was elevated. Ultrasound was done that shows no gallbladder sludge or shadowing gallstones. The CAT scan is also not indicating any gallstones. The MRCP is indicating cholelithiasis with a dilated common bile duct, but there is no CBD stone and also consistent with acute pancreatitis. PLAN: To consider close observation, conservative management, and allow the pancreatitis to resolve and consider gallbladder surgery based upon ongoing evaluation. MD MAEVE Mendoza/AZEB TID: [id number] RECEIPT: [id number] cc:
--- NOTE | 2025-07-14 19:06 | DVHPNRES ---
Progress Note Date Seen: Jul 14, 2025 Resident Creating Document: DHRUV MAYER RESIDENT Medical Necessity Reason Pt with a Central, PICC or Fol: No Subjective Review of Systems Ms. Jimenez is a 45 year old female with PMHx of Gallstone pancreatitis, who presents today for chief complaint of abdominal pain. the patient refers sudden onset of sharp epigastric pain approximately at 4:00 a.m., which radiates to right upper quadrant, 10/10 intensity, associated with nausea and vomiting, without aggravating or relieving factors. She denies diarrhea, fever, chest pain, chills, diaphoresis, bloody vomitus, and other symptoms. The patient was previously admitted at this institution for pancreatitis in November 2024, at that point in time she was discharged with instructions to follow up with General surgery, which she states she was unable to. Due to persistence of symptoms and inability to keep down any food or liquid, the patient sought medical attention at the emergency department. On evaluation in the ED, the patient was in mild distress, vitals were stable. Initial labs show leukocytosis with neutrophilia, mild hyponatremia, lipase >3500, total bilirubin 2.7, AST 503. ALT 321, ALP 299, and hyperglycemia. UA significant for UTI. UDS negative. Gallbladder ultrasound shows cholelithiasis without sonographic evidence of acute cholecystitis. Abdominal CT shows acute pancreatitis with no complications seen. The patient was placed on NPO, started on IV fluids, IV pain medication, and IV antibiotics. She was admitted for further workup and management. Past medical history: Gallstone pancreatitis in November 2024 Past surgical history: Denies Allergies: Denies Social: Denies drug, alcohol, and tobacco use. States she lives with her and feels safe. The patient was seen and examined at bedside. Overnight events were reviewed. The patient reports feeling hungry, abdominal pain 8/10. No other complaints reported. Objective vital signs Vital Sign Date Time Temp Pulse Resp B/P (MAP) Pulse Ox O2 Delivery O2 Flow Rate FiO2 07/14/25 17:00 97.5 76 16 118/74 (89) 99 97.5 07/14/25 08:00 Room Air* 0 21 Total Intake and Output 07/13/25 07/13/25 07/14/25 15:00 23:00 07:00 Intake Total 0 ml 300 ml Balance 0 ml 300 ml medications Current Medications Medications Dose Ordered Sig/Orville Route Start Time Stop Time Status Last Admin Dose Admin Pantoprazole Sodium 40 mg DAILY IV 07/13/25 10:00 07/14/25 10:16 40 MG Ondansetron HCl 4 mg Q4HPRN PRN IV 07/12/25 21:00 Ketorolac Tromethamine 15 mg Q6HPRN PRN IV 07/12/25 22:30 07/17/25 22:29 07/14/25 18:29 15 MG Diagnostic Test (Pha) 1 strip ACHS 07/13/25 07:00 07/14/25 17:00 1 STRIP Insulin Human Regular HS SC 07/13/25 22:00 07/13/25 23:34 3 UNITS Insulin Human Regular AC SC 07/13/25 07:00 07/14/25 06:04 3 UNITS Dextrose 50 ml UD PRN IV 07/12/25 22:30 Sodium Chloride 1,000 ml @ 100 mls/hr Q10H IV 07/13/25 12:15 07/14/25 18:30 100 MLS/HR Piperacillin Sod/ Tazobactam Sod 100 ml @ 25 mls/hr Q8HR IV 07/13/25 14:00 07/14/25 18:30 25 MLS/HR Insulin Glargine 15 units DAILY@1000 SC 07/14/25 10:00 07/14/25 10:17 15 UNITS Morphine Sulfate 2 mg Q4HPRN PRN IV 07/14/25 11:45 Examination Examination Pt is lying on bed General Appearance: Alert, Oriented X3, Cooperative, Mild distress HEENT: Atraumatic, Mucous membranes moist/pink Respiratory: Clear to auscultation, Normal air movement, No added sounds Cardiovascular: Regular rate, Normal S1, Normal S2, No murmurs Abdominal/ : Active bowel sounds, Soft, no distention, right upper quadrant and epigastric tenderness, Chen sign positive Extremities: No edema, Normal pulses, No tenderness/swelling Skin: No Significant rash, except past surgical scars Neuro: Normal speech, sensorimotor deficits none Psych/Mental Status: Mental status NL, Mood NL Nurse was there as senior c software developer during examination laboratory and microbiology Laboratory Tests 07/14/25 06:12 Test 07/14/25 06:12 Range/Units Serum Glucose 192 H 74-106 mg/dL Microbiology Date/Time Source Procedure Growth Status 07/12/25 21:31 Blood Blood Culture - Preliminary NO GROWTH AFTER 24 HOURS OF INCUBATION. Resulted 07/12/25 18:55 Voided Urine Urine Culture - Preliminary Resulted Labs and/or images reviewed: Labs reviewed by me, Image(s) reviewed by me Problem List/Assessment/Plan Problem List/Assessment/Plan Sepsis secondary to Acute Pancreatitis, Lipase > 3500 Intractable nausea and vomiting secondary to above - Abdominal CT: Acute pancreatitis with no complications seen on unenhanced CT - NS 1000 cc IV bolus x2 - NS maintenance 75 cc/hour IV - Zofran 8 mg p.o. once - Zofran 4 mg IV q.4 hours PRN - Dilaudid 1 mg IV once - [place] 10/325 mg tablet p.o. once - Toradol 50 mg IV q.6 hours PRN -surgery consultation appreciated on 07/14/2025: Close observation, conservative management, await pancreatitis resolves, gallbladder surgery will be considered based on ongoing evaluation. - NPO per surgery recommendations - Blood cultures no growth -GI consultation appreciated on 07/14/2025: Continue IV hydration, IV antibiotics, IV PPI and Zofran, monitor labs, pain management Ruled out cholangitis and choledocholithiasis - MRCP: Cholelithiasis.Mildly dilated common bile duct. No filling defect or stricture identified in the common bile duct. No obstructing gallstone visualized.Findings consistent with acute pancreatitis - Monitor LFTs - Ceftriaxone 1 g IV daily discontinued - Metronidazole 500 mg IV q.8 hours discontinued -Zosyn started Cholelithiasis - Gallbladder ultrasound: Cholelithiasis without sonographic evidence of acute cholecystitis Mild hyponatremia, likely hypovolemic - Monitor Sodium Acute Cystitis without hematuria - Ceftriaxone 1 g IV daily discontinued and Zosyn started. - Urine culture - Moderate SSI - Accu-cheks - Consistent Carbohydrate diet once NPO is lifted Hypertriglyceridemia Obesity, BMI 32.2 kg/m2 - I have counseled the patient on healthy lifestyle modifications. Diet: NPO DVT prophylaxis: Patient is ambulatory GI prophylaxis: Protonix 40 mg IV daily Plan discussed with: Patient, Other My Orders My Orders Orders - DHRUV MAYER Procedure Category Date Status Time Npo (Nothing By DIET 07/14/25 Transmitted Mouth) Diet Lunch Date of Service: Jul 14, 2025 Billing Provider: SAMIRA BURDICK MD Common Visit Codes: [id number] INP/OBS CARE(HIGH) DHRUV MAYER Jul 14, 2025 19:06 SAMIRA BURDICK MD Jul 16, 2025 10:48
--- NOTE | 2025-07-14 20:55 | DVHPN2 ---
Progress Note - Dictate Date Seen: Jul 14, 2025 Medical Necessity Reason Pt with a Central, PICC or Fol: No Subjective No new complaints, abdominal pain improving vital signs Vital Sign Date Time Temp Pulse Resp B/P (MAP) Pulse Ox O2 Delivery O2 Flow Rate FiO2 07/14/25 20:43 98.9 75 18 104/68 (80) 97 98.9 07/14/25 08:00 Room Air* 0 21 Total Intake and Output 07/13/25 07/13/25 07/14/25 15:00 23:00 07:00 Intake Total 0 ml 300 ml Balance 0 ml 300 ml medications Current Medications Medications Dose Ordered Sig/[place] Route Start Time Stop Time Status Last Admin Dose Admin Pantoprazole Sodium 40 mg DAILY IV 07/13/25 10:00 07/14/25 10:16 40 MG Ondansetron HCl 4 mg Q4HPRN PRN IV 07/12/25 21:00 Ketorolac Tromethamine 15 mg Q6HPRN PRN IV 07/12/25 22:30 07/17/25 22:29 07/14/25 18:29 15 MG Diagnostic Test (Pha) 1 strip ACHS 07/13/25 07:00 07/14/25 17:00 1 STRIP Insulin Human Regular HS SC 07/13/25 22:00 07/13/25 23:34 3 UNITS Insulin Human Regular AC SC 07/13/25 07:00 07/14/25 06:04 3 UNITS Dextrose 50 ml UD PRN IV 07/12/25 22:30 Sodium Chloride 1,000 ml @ 100 mls/hr Q10H IV 07/13/25 12:15 07/14/25 18:30 100 MLS/HR Piperacillin Sod/ Tazobactam Sod 100 ml @ 25 mls/hr Q8HR IV 07/13/25 14:00 07/14/25 18:30 25 MLS/HR Insulin Glargine 15 units DAILY@1000 SC 07/14/25 10:00 07/14/25 10:17 15 UNITS Morphine Sulfate 2 mg Q4HPRN PRN IV 07/14/25 11:45 objective General Appearance: Alert, Oriented X3, Cooperative, no distress HEENT: Atraumatic, Mucous membranes moist/pink Respiratory: Clear to auscultation, Normal air movement, No added sounds Cardiovascular: Regular rate, Normal S1, Normal S2, No murmurs Abdominal/ : Active bowel sounds, Soft, no distention, non tender Extremities: No edema, Normal pulses, No tenderness/swelling Skin: No Significant rash, except past surgical scars Neuro: Normal speech, sensorimotor deficits none Psych/Mental Status: Mental status NL, Mood NL laboratory and microbiology Laboratory Tests 07/14/25 06:12 Test 07/14/25 06:12 Range/Units Serum Glucose 192 H 74-106 mg/dL Problems(with codes): (1) Acute pancreatitis (2) Hepatomegaly (3) Gallstone pancreatitis (4) Elevated liver enzymes (5) Hepatic steatosis (6) Type 2 diabetes mellitus with hyperglycemia Prognosis Plan Patient is getting IV hydration and IV antibiotics Pain control IV ppi and Zofran Monitor labs Surgical consult noted and appreciated Plan discussed with: Other (Dr Greg Ruiz) HEATHER RUIZ MD Jul 14, 2025 20:55
[2025-07-15 00:36] VITALS: BP 128/78; PULSE 98; RESP 19; TEMP 98.1; O2SAT 97
[2025-07-15 04:51] VITALS: BP 118/70; PULSE 92; RESP 19; TEMP 98.9; O2SAT 95
[2025-07-15 08:13] LABS: Hematocrit 33.8 % (36.0-46.0); Hemoglobin 11.2 g/dL (12.2-16.2); Mean Corpuscular Hemoglobin 27.3 pg (28.0-32.0); Mean Corpuscular Volume 81.8 fL (80.0-100.0); Nucleated Red Blood Cells % 0.0 %
[2025-07-15 08:32] LABS: Albumin 3.7 g/dL (3.2-4.8); Anion Gap 11 (5-15); BUN/Creatinine Ratio 11.5 (10.0-20.0); Bilirubin, Total 0.7 mg/dL (0.2-1.0); Carbon Dioxide 23 mmol/L (20-31); Chloride 106 mmol/L (98-107); Sodium 140 mmol/L (136-145); Total Protein 6.3 g/dL (5.7-8.2)
[2025-07-15 08:33] LABS: Alanine Aminotransferase 133 U/L (7-40); Alkaline Phosphatase 160 U/L (46-116); Blood Urea Nitrogen 6 mg/dL (9-23); Calcium 8.3 mg/dL (8.7-10.4); Glucose 185 mg/dL (74-106); Lipase 77 U/L (12-53); Potassium 3.4 mmol/L (3.5-5.1)
[2025-07-15] MEDS ORDERED: POTASSIUM CHL 20MEQ/100ML 100 ML IV ONE (09:00)
[2025-07-15 09:30] VITALS: BP 125/72; PULSE 74; RESP 18; TEMP 99; O2SAT 96
[2025-07-15] MEDS: POTASSIUM CHL 20 Meq TABLET PO ONE (11:35)
[2025-07-15 12:30] VITALS: BP 112/67; PULSE 69; RESP 16; TEMP 98.9; O2SAT 96
[2025-07-15] MEDS ORDERED: GLUC-224 BC (14:45)
[2025-07-15] MEDS ORDERED: INSUINJ49 SC (14:45)
[2025-07-15] MEDS ORDERED: LANC-347 XX (14:45)
[2025-07-15] MEDS ORDERED: BLOO-169 XX (14:45)
--- NOTE | 2025-07-15 16:43 | DVHDSRES ---
Discharge Summary Date of Admission Resident Creating Document: DHRUV MAYER Jul 13, 2025 at 00:05 Date of Discharge: Jul 15, 2025 Admitting Diagnosis Acute pancreatitis Labs/Diagnostic Data: Laboratory Results Test 07/15/25 11:39 07/15/25 07:27 07/14/25 06:12 07/12/25 23:26 POC Glucose 258 mg/dl (70-106) White Blood Count 7.1 10^3/uL (4.4-10.8) Red Blood Count 4.13 10^6/uL (4.0-5.20) Hemoglobin 11.2 g/dL (12.2-16.2) Hematocrit 33.8 % (36.0-46.0) Mean Corpuscular Volume 81.8 fL (80.0-100.0) Mean Corpuscular Hemoglobin 27.3 pg (28.0-32.0) Mean Corpuscular Hemoglobin Concent 33.3 g/dL (32.0-36.0) Red Cell Distribution Width 14.6 % (11.8-14.3) Platelet Count 279 10^3/uL (140-450) Mean Platelet Volume 8.5 fL (6.9-10.8) Neutrophils (%) (Auto) 58.2 % (37.0-80.0) Lymphocytes (%) (Auto) 32.3 % (10.0-50.0) Monocytes (%) (Auto) 6.1 % (0.0-12.0) Eosinophils (%) (Auto) 3.0 % (0.0-7.0) Basophils (%) (Auto) 0.4 % (0.0-2.0) Neutrophils # (Auto) 4.2 10 ^3/uL (1.6-8.6) Lymphocytes # (Auto) 2.3 10 ^3/uL (0.4-5.4) Monocytes # (Auto) 0.4 10 ^3/uL (0-1.3) Eosinophils # (Auto) 0.2 10 ^3/uL (0-0.8) Basophils # (Auto) 0 10 ^3/uL (0-0.2) Nucleated Red Blood Cells 0.0 % Sodium Level 140 mmol/L (136-145) Potassium Level 3.4 mmol/L (3.5-5.1) Chloride Level 106 mmol/L (98-107) Carbon Dioxide Level 23 mmol/L (20-31) Anion Gap 11 (5-15) Blood Urea Nitrogen 6 mg/dL (9-23) Creatinine 0.52 mg/dL (0.550-1.02) Glomerular Filtration Rate Calc 117 mL/min (>90) BUN/Creatinine Ratio 11.5 (10.0-20.0) Serum Glucose 185 mg/dL (74-106) Calcium Level 8.3 mg/dL (8.7-10.4) Total Bilirubin 0.7 mg/dL (0.2-1.0) Aspartate Amino Transferase (AST) 79 U/L (13-40) Alanine Aminotransferase (ALT) 133 U/L (7-40) Alkaline Phosphatase 160 U/L (46-116) Total Protein 6.3 g/dL (5.7-8.2) Albumin 3.7 g/dL (3.2-4.8) Lipase 77 U/L (12-53) Direct Bilirubin 0.3 mg/dL (<0.3) Lactic Acid Level 1.9 mmol/L (0.4-2.0) Test 07/12/25 21:31 07/12/25 21:25 07/12/25 18:55 07/12/25 18:37 Ammonia < 10 umol/L (11-32) Prothrombin Time 10.7 sec (9.3-11.8) Prothrombin Time INR 1.01 (0.9-1.15) Activated Partial Thromboplast Time 24.2 SEC (24.5-34.5) Urine Color Dark-yellow (Yellow) Urine Clarity Clear (Clear) Urine pH 5.5 (5.0-9.0) Urine Specific [place] 1.028 (1.001-1.035) Urine Protein Negative (Negative) Urine Ketones 2+ (Negative) Urine Blood Negative /uL (Negative) Urine Nitrite 1+ (Negative) Urine Bilirubin Negative (Negative) Urine Urobilinogen Normal mg/dL (Negative) Urine Leukocyte Esterase Negative /uL (Negative) Urine RBC 3 /hpf (0 - 4) Urine Microscopic WBC 8 /HPF (0-5) Urine Squamous Epithelial Cells Few /hpf (<5) Urine Bacteria None seen /hpf (None Seen) Urine Yeast (Budding) Occasional /hpf (None Urine Glucose 4+ mg/dL (Normal) Urine Test Negative (Negative) Urine Opiates Screen Neg (NEGATIVE) Urine Fentanyl Screen Neg (NEGATIVE) Urine Barbiturates Screen Neg (NEGATIVE) Urine Phencyclidine Screen Neg (NEGATIVE) Urine Amphetamines Screen Neg (NEGATIVE) Urine Benzodiazepines Screen Neg (NEGATIVE) Urine Cocaine Screen Neg (NEGATIVE) Urine Cannabinoids Screen Neg (NEGATIVE) Hemoglobin A1c 12.0 % A1C (<5.7) Phosphorus Level 4.4 mg/dL (2.4-5.1) Magnesium Level 2.0 mg/dL (1.6-2.6) Triglycerides Level 234 mg/dL (< 150) Cholesterol Level 191 mg/dL (< 200) LDL Cholesterol 97 mg/dL (< 100) HDL Cholesterol 62 mg/dL (40-59) Vitamin B12 Level 1493 pg/mL (211-911) Vitamin D 25-Hydroxy 40.7 ng/mL (30.0-100) Thyroid Stimulating Hormone (TSH) 0.77 uIU/mL (0.55-4.78) Other Laboratory Tests 07/15/25 07:27 Brief Hx & Hospital Course: Ms. Jimenez is a 45 year old female with PMHx of Gallstone pancreatitis, who presents today for chief complaint of abdominal pain. the patient refers sudden onset of sharp epigastric pain approximately at 4:00 a.m., which radiates to right upper quadrant, 10/10 intensity, associated with nausea and vomiting, without aggravating or relieving factors. She denies diarrhea, fever, chest pain, chills, diaphoresis, bloody vomitus, and other symptoms. The patient was previously admitted at this institution for pancreatitis in November 2024, at that point in time she was discharged with instructions to follow up with General surgery, which she states she was unable to. Due to persistence of symptoms and inability to keep down any food or liquid, the patient sought medical attention at the emergency department. On evaluation in the ED, the patient was in mild distress, vitals were stable. Initial labs show leukocytosis with neutrophilia, mild hyponatremia, lipase >3500, total bilirubin 2.7, AST 503. ALT 321, ALP 299, and hyperglycemia. UA significant for UTI. UDS negative. Gallbladder ultrasound shows cholelithiasis without sonographic evidence of acute cholecystitis. Abdominal CT shows acute pancreatitis with no complications seen. The patient was placed on NPO, started on IV fluids, IV pain medication, and IV antibiotics. She was admitted for further workup and management. Past medical history: Gallstone pancreatitis in November 2024 Past surgical history: Denies Allergies: Denies Social: Denies drug, alcohol, and tobacco use. States she lives with her and feels safe. The patient was diagnosed with sepsis secondary to acute pancreatitis based on clinical and abdominal CT findings. She was given IV normal saline bolus, pain and nausea was managed by Dilaudid, [place] and Zofran respectively. Surgery consultation was appreciated, however recommended to closely observe, conservative management and wait for pancreatitis resolves, no gallbladder surgery was indicated on further evaluation. Choledocholithiasis and cholangitis was ruled out. MRCP revealed cholelithiasis, however no CBD stone. Liver function test was closely monitored. The patient was treated with IV ceftriaxone and metronidazole and Zosyn. On the day of discharge, the patient was hemodynamically stable, was tolerating food, verbalized understanding of the discharge plan. The patient was advised to follow up with PCP, DC clinic and surgery outpatient. Examination Pt is lying on bed General Appearance: Alert, Oriented X3, Cooperative, Mild distress HEENT: Atraumatic, Mucous membranes moist/pink Respiratory: Clear to auscultation, Normal air movement, No added sounds Cardiovascular: Regular rate, Normal S1, Normal S2, No murmurs Abdominal/ : Active bowel sounds, Soft, no distention, right upper quadrant and epigastric tenderness, Chen sign positive Extremities: No edema, Normal pulses, No tenderness/swelling Skin: No Significant rash, except past surgical scars Neuro: Normal speech, sensorimotor deficits none Psych/Mental Status: Mental status NL, Mood NL Nurse was there as staff training and development manager during examination Case discussed with . Operations or Procedures PATIENT: GEETHA REYNA ACCT: [id number] UNIT: [id number] : 1980 LOC: OVERFLOW ROOM / BED: [facility]-ER / A AGE / SEX: 45 / F ADM STATUS: ADM IN SERVICE [id number] ORDERING PHYSICIAN: ESTEBAN ROJAS RESIDENT PROCEDURE(s): MRCP - MRCP MRI REASON: R/o Choledocolithiasis ORDER NUMBER(s): [id number], ACCESSION NUMBER(s): [id number] CLINICAL INFORMATION: Rule out choledocholithiasis. TECHNIQUE: Multisequence multiplanar MRI images of the abdomen were obtained without IV contrast. Heavily T2-weighted MRCP images were obtained. 3D MRCP images were created. COMPARISON: US GALLBLADDER on DOS: 07/12/25, MRI MRCP MRI on DOS: 12/29/24, US GALLBLADDER on DOS: 12/28/24 FINDINGS: The gallbladder is filled with gallstones. Common bile duct is dilated up to 8.5 mm in diameter. No obstructing gallstone visualized. No filling defect or stricture identified in the common bile duct on MRCP images. There is prominent peripancreatic edema and fluid consistent with acute pancreatitis. Edema and fluid courses into adjacent portions of the abdomen, including adjacent to the gallbladder fossa. No organized peripancreatic fluid collection identified. The liver, spleen, adrenal glands, and kidneys appear grossly unremarkable on limited noncontrast enhanced MRI images. IMPRESSION: 1. Cholelithiasis. 2. Mildly dilated common bile duct. No filling defect or stricture identified in the common bile duct. No obstructing gallstone visualized. 3. Findings consistent with acute pancreatitis. PATIENT: GEETHA REYNA ACCT: [id number] UNIT: [id number] : 1980 LOC: ER ROOM / BED: / AGE / SEX: 45 / F ADM STATUS: REG ER SERVICE 46 ORDERING PHYSICIAN: BAYLEE LAUAR PROCEDURE(s): CXR1 - CHEST XRAY 1 VIEW REASON: Sepsis ORDER NUMBER(s): [id number], ACCESSION NUMBER(s): [id number] CHEST RADIOGRAPH Indication: Sepsis Technique: Single frontal view of the chest was obtained Comparison: None FINDINGS: Lines and Tubes: None Lungs: Mildly prominent bronchovascular markings in both lung bases. May represent chronic disease. No prior studies for comparison Pleura: No effusion. No pneumothorax. Cardiomediastinal contours: Unremarkable Bones: No acute osseous abnormality. IMPRESSION: 1. Bibasilar bronchial markings. May be acute or chronic. PATIENT: GEETHA REYNA ACCT: [id number] UNIT: [id number] : 1980 LOC: ER ROOM / BED: / AGE / SEX: 45 / F ADM STATUS: REG ER SERVICE 46 ORDERING PHYSICIAN: ETCHEGOYEN,BAYLEE RESIDENT PROCEDURE(s): ABPL - CT AB PEL WO CON-NO ORAL OR IV REASON: Pancreatitis ORDER NUMBER(s): [id number], ACCESSION NUMBER(s): [id number] Exam: CT CT AB PEL WO CON-NO ORAL OR IV History: Pancreatitis Comparison Study: CT CT AB PEL WITH IV CON ONLY on DOS: 12/27/24 Technique: Multidetector spiral CT of the abdomen was performed from lung bases to pubic symphysis. Imaging was performed without IV contrast. Axial, coronal and sagittal multiplanar reformats were obtained from the axial data set by the technologist. Radiation Dose : 1. Abdomen/Pelvis: CTDIvol 12.82 mGy, DLP 670.33 mGy*cm. Findings: Evaluation of solid organs is limited due to lack of intravenous contrast use. Lung Bases: No acute or significant lung base finding. Normal heart size. No pleural or pericardial effusion. Liver: The liver is normal in size. No focal lesions. Gallbladder and Biliary Tree: Unremarkable Spleen: Unremarkable Pancreas: Diffuse parenchymal edema with peripancreatic edema. No obvious organized fluid collections. Adrenal Glands: Unremarkable Kidneys: Kidneys are grossly normal without calculi or hydronephrosis. Bladder: Grossly unremarkable for degree of distention. Bowel: The stomach is grossly normal in appearance. Small bowel and colon are normal in caliber and distribution. Normal appendix is visualized in the right lower quadrant without findings of appendicitis. Ascites: Absent Lymphadenopathy: No mesenteric, retroperitoneal or periportal lymphadenopathy. Abdominal Wall and Mesentery: Unremarkable. Vasculature: The visualized abdominal aorta is normal in size and caliber. Evaluation of abdominal and pelvic vessels is limited due to lack of intravenous contrast. Pelvic Organs: Unremarkable Musculoskeletal: No aggressive focal bony lesions, acute fractures or dislocation. IMPRESSION: Acute pancreatitis with no complications seen on unenhanced CT. Radiation optimization: All CT scans at this facility use at least one of these dose optimization techniques: automated exposure control mA and/or kV adjustment per patient size (includes targeted exams where dose is matched to clinical indication) or iterative reconstruction. PATIENT: GEETHA REYNA ACCT: [id number] UNIT: [id number] : 1980 LOC: ER ROOM / BED: / AGE / SEX: 45 / F ADM STATUS: REG ER SERVICE [id number] ORDERING PHYSICIAN: ALVA MIKE MD PROCEDURE(s): GBUS - GALLBLADDER REASON: RUQ pain ORDER NUMBER(s): [id number], ACCESSION NUMBER(s): [id number] EXAM: US GALLBLADDER HISTORY: RUQ pain COMPARISON: MRI MRCP MRI on DOS: 12/29/24 TECHNIQUE: Multiple longitudinal and transverse sonographic images of the abdomen were obtained. Doppler was applied as indicated. FINDINGS: [PANCREAS]: The visualized portions of the pancreas are unremarkable. [AORTA]: Normal [LIVER]: 18.3 cm. heterogeneous, increased echogenicity. There is no focal hepatic mass lesion detected. [GALLBLADDER]: Gallbladder wall measures 0.2 cm. There is no gallbladder sludge or shadowing gallstone. There is no sonographic Chen sign. [BILIARY TREE]: Common bile duct measures 1.1 cm in diameter. no intrahepatic biliary ductal dilatation. [ASCITES]: No free fluid is demonstrated. [VESSELS]: The main portal vein is patent on color Doppler evaluation. The inferior vena cava is patent on color Doppler evaluation. [RIGHT KIDNEY]: 10.6 cm. normal cortical echogenicity and normal contour. No hydronephrosis. IMPRESSION: 1. Cholelithiasis without sonographic evidence of acute cholecystitis. 2. Heterogeneously echogenic liver, which is a nonspecific finding and may represent hepatic steatosis and/or other underlying hepatocellular pathology. Condition at Discharge: Stable Final Diagnosis/Problems List Sepsis secondary to Acute Pancreatitis, Lipase > 3500 Ruled out cholangitis and choledocholithiasis Cholelithiasis Mild hyponatremia, likely hypovolemic Acute Cystitis without hematuria Hypertriglyceridemia Obesity, BMI 32.2 kg/m2 Discharge Disposition: Home Discharge Instruct/Medications Diet: Regular Activity: No Restrictions, As Tolerated Follow Up/Referral: Follow up in a week with surgery and PCP in 1 week. Scheduled Atorvastatin Calcium (Lipitor), 1 TAB PO DAILY Glucose Blood (Easy Touch Glucose Test S), 1 EA BC BID Insulin Isophane & Reg (Human) (Novolin 70/30 Relion), 100 UNITS SC UD Durable Medical Equipment Blood Glucose Monitoring Suppl (Easy Touch Glucose Monito), EA XX BID, (DME) Lancets (Freestyle Lancets), EA XX BID, (DME) Discharge Statement: "Patient was advised to return to the ER or call 911 if any headaches, dizziness, shortness of breath, chest pain, abdominal pain, bleeding, fevers, or worsening of medical condition. Patient was counseled about treatment plan, medications, possible side effects, patientverbalized understanding. All questions were answered to the best of my ability. This discharge took greater then 30 minutes in planning, reviewing documentation, counseling the patient, and discussing with other team members." ASSESSMENT ASSESSMENT Assessment Acute pancreatitis Gallstone Date of Service: Jul 15, 2025 Billing Provider: SAMIRA BURDICK MD Common Visit Codes: 20289-PYI/OBS DISCH DAY >30min LEYLADHRUV eMjia RESIDENT Jul 15, 2025 16:43 SAMIRA BURDICK MD Jul 16, 2025 10:49
[2025-07-15 17:07] VITALS: BP 108/67; PULSE 76; RESP 14; TEMP 98.7; O2SAT 96
--- NOTE | 2025-07-15 22:14 | DVHPN2 ---
Progress Note - Dictate Date Seen: Jul 15, 2025 (Late entry Time of visit 2 pm) Medical Necessity Reason Pt with a Central, PICC or Fol: No Subjective No new complaints, abdominal pain improving Tolerating diet LFTs trending down vital signs Vital Sign Date Time Temp Pulse Resp B/P (MAP) Pulse Ox O2 Delivery O2 Flow Rate FiO2 07/15/25 17:07 98.7 76 14 108/67 (81) 96 98.7 07/15/25 08:00 Room Air* 0 21 Total Intake and Output 07/14/25 07/14/25 07/15/25 15:00 23:00 07:00 Intake Total 0 ml 100 ml Balance 0 ml 100 ml objective General Appearance: Alert, Oriented X3, Cooperative, no distress HEENT: Atraumatic, Mucous membranes moist/pink Respiratory: Clear to auscultation, Normal air movement, No added sounds Cardiovascular: Regular rate, Normal S1, Normal S2, No murmurs Abdominal/ : Active bowel sounds, Soft, no distention, non tender Extremities: No edema, Normal pulses, No tenderness/swelling Skin: No Significant rash, except past surgical scars Neuro: Normal speech, sensorimotor deficits none Psych/Mental Status: Mental status NL, Mood NL laboratory and microbiology Laboratory Tests 07/15/25 07:27 Test 07/15/25 07:27 Range/Units Serum Glucose 185 H 74-106 mg/dL Problems(with codes): (1) Acute pancreatitis (2) Hepatomegaly (3) Gallstone pancreatitis (4) Elevated liver enzymes (5) Hepatic steatosis Prognosis Plan Advance diet as tolerated Discharge planning in progress Outpt cholecystectomy Plan discussed with: Patient HEATHER DOS SANTOS MD Jul 15, 2025 22:14
== END 2025-07-15 16:16 | disposition home or self-care (01) | DRG 720 ==
LOC: ER 17:35 → OVERFLOW 07-13 00:05 → WEST WING 07-13 23:50
PROVIDERS: ADMIT Internal Medicine; ATTEND Internal Medicine
DX: A41.9 Sepsis, unspecified organism (principal); K85.90 Acute pancreatitis without necrosis or infection, unspecified; N30.00 Acute cystitis without hematuria; K76.0 Fatty (change of) liver, not elsewhere classified; E66.9 Obesity, unspecified; E11.65 Type 2 diabetes mellitus with hyperglycemia; E87.1 Hypo-osmolality and hyponatremia; E78.1 Pure hyperglyceridemia; K80.20 Calculus of gallbladder without cholecystitis without obstruction; R16.0 Hepatomegaly, not elsewhere classified; R79.89 Other specified abnormal findings of blood chemistry; Z68.32 Body mass index [BMI] 32.0-32.9, adult
CPT/HCPCS: 36415; 71045; 74176; 74181; 76705; 80048; 80053; 80061; 80076; 80307; 81001; 81025; 82140; 82306; 82607; 82962; 83036; 83605; 83690; 83735; 84100; 84443; 85025; 85610; 85730; 87040; 87086; G0378; J1815; J1885; J2470; J2543; Q0162